=== PATIENT | male | born 1955 | race Caucasian/White ===

== ENCOUNTER 2017-12-24 15:41 | Emergency (ER) | payer OTHER ==
[~2017-12-24] VITALS: Ht 170.2 cm; Wt 66.0 kg
[~2017-12-24 15:41] MED LIST: ACET325S8 PO; CYCL1PAK PO; FLUN25I; HYDR50IN3 IM; OMEP20TA39 PO; QUET100 PO; SUCR1TAB PO; TRAZ100 PO
[2017-12-24 15:43] VITALS: BP 159/88; PULSE 92; RESP 16; TEMP 98.3; O2SAT 95
[2017-12-24 17:25] VITALS: BP 154/78; PULSE 77; RESP 20; TEMP 98.3; O2SAT 97
[2017-12-24 18:48] VITALS: BP 144/75; PULSE 81; RESP 16; TEMP 97.8; O2SAT 95
[2017-12-24] MEDS ORDERED: TRAZ100T10 PO (18:49)
[2017-12-24] MEDS ORDERED: HYDR50TA94 PO (18:49)
[2017-12-24] MEDS ORDERED: SERT-132 PO (18:49)
[2017-12-24] MEDS ORDERED: SERO200T PO (18:49)
[2017-12-24] MEDS ORDERED: LORazepam 2 MG/ML VIAL IV PUSH PRN ×3 (19:00)
[2017-12-24] MEDS ORDERED: LORazepam 2 MG TAB PO PRN (19:00)
[2017-12-24] MEDS ORDERED: FLUMAZENIL 0.5 MG/5 ML VIAL IV PUSH PRN (19:00)
[2017-12-24] MEDS: LORazepam 2 MG/ML VIAL IV PUSH PRN (19:10)
[2017-12-24 20:35] LABS: AUTOMATED NEUTROPHIL # 4.4 TH/MM3 (1.8-7.7); BASOPHIL # 0.1 TH/MM3 (0-0.2); BASOPHIL % 0.8 % (0.0-2.0); EOSINOPHIL # 0.2 TH/MM3 (0-0.4); EOSINOPHIL % 1.8 % (0.0-4.0); HEMATOCRIT 44.1 % (39.0-51.0); HEMOGLOBIN 15.4 GM/DL (13.0-17.0); LYMPH % 37.7 % (9.0-44.0); LYMPHOCYTE # 3.2 TH/MM3 (1.0-4.8); MEAN CELL VOLUME 85.2 FL (80.0-100.0); MEAN CORPUSCULAR HEMOGLOBIN 29.7 PG (27.0-34.0); MEAN CORPUSCULAR HGB CONC 34.8 % (32.0-36.0); MEAN PLATELET VOLUME 6.9 FL (7.0-11.0); MONO % 7.8 % (0.0-8.0); MONOCYTE # 0.7 TH/MM3 (0-0.9); NEUT % 51.9 % (16.0-70.0); PLATELET COUNT 228 TH/MM3 (150-450); RED BLOOD COUNT 5.18 MIL/MM3 (4.50-5.90); RED CELL DISTRIBUTION WIDTH 18.8 % (11.6-17.2); WHITE BLOOD COUNT 8.5 TH/MM3 (4.0-11.0)
[2017-12-24 21:02] LABS: ALBUMIN 3.8 GM/DL (3.4-5.0); ALKALINE PHOSPHATASE 126 U/L (45-117); ALT (GPT) 26 U/L (12-78); AST (GOT) 40 U/L (15-37); BICARBONATE 25.2 MEQ/L (21.0-32.0); BLOOD UREA NITROGEN 7 MG/DL (7-18); CALCIUM 8.7 MG/DL (8.5-10.1); CHLORIDE 101 MEQ/L (98-107); CREATININE 0.87 MG/DL (0.60-1.30); GLOMERULAR FILTRATION RATE 88 ML/MIN (>89); GLUCOSE,RANDOM 92 MG/DL (74-106); SODIUM (NA) 137 MEQ/L (136-145); TOTAL BILIRUBIN ADULT 0.1 MG/DL (0.2-1.0); TOTAL PROTEIN 7.6 GM/DL (6.4-8.2)
[2017-12-24 21:04] LABS: ACETAMINOPHEN LESS THAN 2.0 MCG/ML (10.0-30.0)
--- NOTE | 2017-12-24 21:25 | PD ---
HPI Chief Complaint: Injury Time Seen by Provider: 19:00 Travel History International Travel<30 days: No Contact w/Intl Traveler<30days: No Traveled to known affect area: No History of Present Illness HPI Patient is a 62-year-old male that presented voluntarily to the emergency department for psychiatric evaluation. Patient reports that he was suicidal on arrival. He states that he recently moved from [place] to [place] and is living with a sister who is "a bitch". He reported that he was "ready to lose it". He has a history of a previous suicide attempt, he states he attempted to cut his wrist. He denies any psychiatric history, he receives health care at the [facility]. He reports a history of hypertension hyperlipidemia, he reports being on medication for both but cannot state which ones. Patient states he has been anxious recently and feels better now that he has had Ativan. Patient reports a history of chronic alcoholism drinking 8-9 beers daily. He had for today prior to arrival. Symptom onset was gradual, symptom severity is moderate, symptoms are exacerbated by relationship issues with his sister. Patient denies any physical complaints at this time. PFSH Past Medical History Arthritis: Yes Bipolar Disorder: Yes Anxiety: Yes Depression: Yes High Cholesterol: Yes COPD: Yes Diminished Hearing: No GERD: Yes Hypertension: Yes Psychiatric: Yes Tetanus Vaccination: Unknown Past Surgical History Eye Surgery: Yes (LEFT EYE CATARACT SURGERY) Social History Alcohol Use: Yes ("I AM AN ALCOHOLIC") Tobacco Use: Yes (2 PPD) Substance Use: Yes (ALCOHOL DAILY 4-8 BEERS NOW. 1PINT VODKA DAILY BUT QUIT 1 MONTH AGO.) Allergies-Medications (Allergen,Severity, Reaction): Coded Allergies: No Known Allergies (Verified Allergy, Unknown, 12/24/17) Uncoded Allergies: environmental (Allergy, Intermediate, Irritation, 06/17/10) excess mucus Reported Meds & Prescriptions Reported Meds & Active Scripts Active Reported Trazodone (Trazodone HCl) 100 Mg Tablet 100 Mg PO HS Sertraline (Sertraline HCl) 50 Mg Tab 50 Mg PO DAILY Hydroxyzine HCl 50 Mg Tab 50 Mg PO TID Seroquel (Quetiapine Fumarate) 200 Mg Tab 200 Mg PO TID Review of Systems Except as stated in HPI: all other systems reviewed are Neg Psychiatric: Positive: Anxiety, Suicidal Ideations, Substance Abuse Physical Exam Narrative GENERAL: Well-developed, well-nourished, well-kept male. Presenting in no acute distress. SKIN: Warm and dry. HEAD: Atraumatic. Normocephalic. EYES: Pupils equal and round. No scleral icterus. No injection or drainage. ENT: No nasal bleeding or discharge. Mucous membranes pink and moist. NECK: Trachea midline. No JVD. CARDIOVASCULAR: Regular rate and rhythm. RESPIRATORY: No accessory muscle use. Clear to auscultation. Breath sounds equal bilaterally. GASTROINTESTINAL: Abdomen soft, non-tender, nondistended. Hepatic and splenic margins not palpable. MUSCULOSKELETAL: Extremities without clubbing, cyanosis, or edema. No obvious deformities. NEUROLOGICAL: Awake and alert. No obvious cranial nerve deficits. Motor grossly within normal limits. Five out of 5 muscle strength in the arms and legs. Normal speech. PSYCHIATRIC: Appropriate mood and affect; insight and judgment normal. Data Data Last Documented VS Vital Signs Date Time Temp Pulse Resp B/P (MAP) Pulse Ox O2 Delivery O2 Flow Rate FiO2 12/24/17 18:48 97.8 81 16 144/75 (98) 95 Room Air Orders Orders Diet Regular Basic (12/24/17 Dinner) Complete Blood Count With Diff (12/24/17 18:46) Comprehensive Metabolic Panel (12/24/17 18:46) Thyroid Stimulating Hormone (12/24/17 18:46) Psych Screen (12/24/17 18:46) Drug Screen, Random Urine (12/24/17 18:46) Alcohol (Ethanol) (12/24/17 18:46) Salicylates (Aspirin) (12/24/17 18:46) Tylenol (Acetaminophen) (12/24/17 18:46) Alcohol Withdrawal Asmt-Ciwa ONCE (12/24/17 18:46) Flumazenil Inj (Romazicon Inj) (12/24/17 19:00) Lorazepam (Ativan) (12/24/17 19:00) Lorazepam Inj (Ativan Inj) (12/24/17 19:00) Lorazepam (Ativan) (12/24/17 19:00) Lorazepam Inj (Ativan Inj) (12/24/17 19:00) Lorazepam Inj (Ativan Inj) (12/24/17 19:00) Lorazepam Inj (Ativan Inj) (12/24/17 19:00) Labs Laboratory Tests Test 12/24/17 20:10 12/24/17 20:17 White Blood Count 8.5 TH/MM3 Red Blood Count 5.18 MIL/MM3 Hemoglobin 15.4 GM/DL Hematocrit 44.1 % Mean Corpuscular Volume 85.2 FL Mean Corpuscular Hemoglobin 29.7 PG Mean Corpuscular Hemoglobin Concent 34.8 % Red Cell Distribution Width 18.8 % Platelet Count 228 TH/MM3 Mean Platelet Volume 6.9 FL Neutrophils (%) (Auto) 51.9 % Lymphocytes (%) (Auto) 37.7 % Monocytes (%) (Auto) 7.8 % Eosinophils (%) (Auto) 1.8 % Basophils (%) (Auto) 0.8 % Neutrophils # (Auto) 4.4 TH/MM3 Lymphocytes # (Auto) 3.2 TH/MM3 Monocytes # (Auto) 0.7 TH/MM3 Eosinophils # (Auto) 0.2 TH/MM3 Basophils # (Auto) 0.1 TH/MM3 CBC Comment DIFF FINAL Differential Comment Blood Urea Nitrogen 7 MG/DL Creatinine 0.87 MG/DL Random Glucose 92 MG/DL Total Protein 7.6 GM/DL Albumin 3.8 GM/DL Calcium Level 8.7 MG/DL Alkaline Phosphatase 126 U/L Aspartate Amino Transf (AST/SGOT) 40 U/L Alanine Aminotransferase (ALT/SGPT) 26 U/L Total Bilirubin 0.1 MG/DL Sodium Level 137 MEQ/L Potassium Level 3.7 MEQ/L Chloride Level 101 MEQ/L Carbon Dioxide Level 25.2 MEQ/L Anion Gap 11 MEQ/L Estimat Glomerular Filtration Rate 88 ML/MIN Thyroid Stimulating Hormone 3rd Gen 3.200 uIU/ML Salicylates Level 4.7 MG/DL Acetaminophen Level LESS THAN 2.0 MCG/ML Ethyl Alcohol Level 210 MG/DL Urine Opiates Screen NEG Urine Barbiturates Screen NEG Urine Amphetamines Screen NEG Urine Benzodiazepines Screen NEG Urine Cocaine Screen NEG Urine Cannabinoids Screen NEG MDM Medical Decision Making Medical Screen Exam Complete: Yes Emergency Medical Condition: Yes Interpretation(s) Laboratory Tests Test 12/24/17 20:10 12/24/17 20:17 White Blood Count 8.5 TH/MM3 Red Blood Count 5.18 MIL/MM3 Hemoglobin 15.4 GM/DL Hematocrit 44.1 % Mean Corpuscular Volume 85.2 FL Mean Corpuscular Hemoglobin 29.7 PG Mean Corpuscular Hemoglobin Concent 34.8 % Red Cell Distribution Width 18.8 % Platelet Count 228 TH/MM3 Mean Platelet Volume 6.9 FL Neutrophils (%) (Auto) 51.9 % Lymphocytes (%) (Auto) 37.7 % Monocytes (%) (Auto) 7.8 % Eosinophils (%) (Auto) 1.8 % Basophils (%) (Auto) 0.8 % Neutrophils # (Auto) 4.4 TH/MM3 Lymphocytes # (Auto) 3.2 TH/MM3 Monocytes # (Auto) 0.7 TH/MM3 Eosinophils # (Auto) 0.2 TH/MM3 Basophils # (Auto) 0.1 TH/MM3 CBC Comment DIFF FINAL Differential Comment Blood Urea Nitrogen 7 MG/DL Creatinine 0.87 MG/DL Random Glucose 92 MG/DL Total Protein 7.6 GM/DL Albumin 3.8 GM/DL Calcium Level 8.7 MG/DL Alkaline Phosphatase 126 U/L Aspartate Amino Transf (AST/SGOT) 40 U/L Alanine Aminotransferase (ALT/SGPT) 26 U/L Total Bilirubin 0.1 MG/DL Sodium Level 137 MEQ/L Potassium Level 3.7 MEQ/L Chloride Level 101 MEQ/L Carbon Dioxide Level 25.2 MEQ/L Anion Gap 11 MEQ/L Estimat Glomerular Filtration Rate 88 ML/MIN Thyroid Stimulating Hormone 3rd Gen 3.200 uIU/ML Salicylates Level 4.7 MG/DL Acetaminophen Level LESS THAN 2.0 MCG/ML Ethyl Alcohol Level 210 MG/DL Urine Opiates Screen NEG Urine Barbiturates Screen NEG Urine Amphetamines Screen NEG Urine Benzodiazepines Screen NEG Urine Cocaine Screen NEG Urine Cannabinoids Screen NEG Vital Signs Date Time Temp Pulse Resp B/P (MAP) Pulse Ox O2 Delivery O2 Flow Rate FiO2 12/24/17 18:48 97.8 81 16 144/75 (98) 95 Room Air 12/24/17 17:25 98.3 77 20 154/78 (103) 97 Room Air 12/24/17 16:20 Room Air 12/24/17 15:43 98.3 92 16 159/88 (111) 95 Room Air Differential Diagnosis Anxiety versus depression versus substance abuse versus metabolic abnormality versus suicidal ideations versus other Narrative Course Patient is a 62-year-old well-appearing male presented voluntarily for psychiatric evaluation. Patient's vital signs are stable. Mental health screening discussed with the patient. Psychiatric screen ordered. Labs reviewed , no acute finding identified. Patient's blood alcohol level is 210. Patient is medically clear for psychiatric evaluation. Diagnosis Primary Impression: Medical clearance for psychiatric admission Condition: Stable Karin Aponte Dec 24, 2017 21:25
[2017-12-24 22:51] VITALS: BP 108/64; PULSE 77; RESP 18; TEMP 98.9; O2SAT 95
[2017-12-25] MEDS: LORazepam 2 MG/ML VIAL IV PUSH PRN (00:06)
[2017-12-25 03:09] VITALS: BP 144/75; PULSE 78; RESP 18; TEMP 98.8; O2SAT 95
[2017-12-25] MEDS: LORazepam 1 MG TAB PO PRN ×3 (05:23→11:51)
[2017-12-25 06:54] VITALS: BP 146/76; PULSE 85; RESP 18; TEMP 98.1; O2SAT 96
--- NOTE | 2017-12-25 09:03 | PD ---
Physical Exam Time Seen by Provider: 09:02 Narrative The patient is being transferred to the [facility] for continued care and evaluation. Data Data Last Documented VS Vital Signs Date Time Temp Pulse Resp B/P (MAP) Pulse Ox O2 Delivery O2 Flow Rate FiO2 12/25/17 06:54 98.1 85 18 146/76 (99) 96 Room Air Orders Orders Diet Regular Basic (12/24/17 Dinner) Complete Blood Count With Diff (12/24/17 18:46) Comprehensive Metabolic Panel (12/24/17 18:46) Thyroid Stimulating Hormone (12/24/17 18:46) Psych Screen (12/24/17 18:46) Drug Screen, Random Urine (12/24/17 18:46) Alcohol (Ethanol) (12/24/17 18:46) Salicylates (Aspirin) (12/24/17 18:46) Tylenol (Acetaminophen) (12/24/17 18:46) Alcohol Withdrawal Asmt-Ciwa ONCE (12/24/17 18:46) Flumazenil Inj (Romazicon Inj) (12/24/17 19:00) Lorazepam (Ativan) (12/24/17 19:00) Lorazepam Inj (Ativan Inj) (12/24/17 19:00) Lorazepam (Ativan) (12/24/17 19:00) Lorazepam Inj (Ativan Inj) (12/24/17 19:00) Lorazepam Inj (Ativan Inj) (12/24/17 19:00) Lorazepam Inj (Ativan Inj) (12/24/17 19:00) Diet Regular Basic (12/25/17 Breakfast) Labs Laboratory Tests Test 12/24/17 20:10 12/24/17 20:17 White Blood Count 8.5 TH/MM3 Red Blood Count 5.18 MIL/MM3 Hemoglobin 15.4 GM/DL Hematocrit 44.1 % Mean Corpuscular Volume 85.2 FL Mean Corpuscular Hemoglobin 29.7 PG Mean Corpuscular Hemoglobin Concent 34.8 % Red Cell Distribution Width 18.8 % Platelet Count 228 TH/MM3 Mean Platelet Volume 6.9 FL Neutrophils (%) (Auto) 51.9 % Lymphocytes (%) (Auto) 37.7 % Monocytes (%) (Auto) 7.8 % Eosinophils (%) (Auto) 1.8 % Basophils (%) (Auto) 0.8 % Neutrophils # (Auto) 4.4 TH/MM3 Lymphocytes # (Auto) 3.2 TH/MM3 Monocytes # (Auto) 0.7 TH/MM3 Eosinophils # (Auto) 0.2 TH/MM3 Basophils # (Auto) 0.1 TH/MM3 CBC Comment DIFF FINAL Differential Comment Blood Urea Nitrogen 7 MG/DL Creatinine 0.87 MG/DL Random Glucose 92 MG/DL Total Protein 7.6 GM/DL Albumin 3.8 GM/DL Calcium Level 8.7 MG/DL Alkaline Phosphatase 126 U/L Aspartate Amino Transf (AST/SGOT) 40 U/L Alanine Aminotransferase (ALT/SGPT) 26 U/L Total Bilirubin 0.1 MG/DL Sodium Level 137 MEQ/L Potassium Level 3.7 MEQ/L Chloride Level 101 MEQ/L Carbon Dioxide Level 25.2 MEQ/L Anion Gap 11 MEQ/L Estimat Glomerular Filtration Rate 88 ML/MIN Thyroid Stimulating Hormone 3rd Gen 3.200 uIU/ML Salicylates Level 4.7 MG/DL Acetaminophen Level LESS THAN 2.0 MCG/ML Ethyl Alcohol Level 210 MG/DL Urine Opiates Screen NEG Urine Barbiturates Screen NEG Urine Amphetamines Screen NEG Urine Benzodiazepines Screen NEG Urine Cocaine Screen NEG Urine Cannabinoids Screen NEG MDM Supervised Visit with CATIE: No Narrative Course The patient is being transferred to the [facility] for continued care and evaluation. Diagnosis Primary Impression: Medical clearance for psychiatric admission Disposition: 65 DISC TO PSYCH CARE FACILITY Condition: Stable Cindy Roche Dec 25, 2017 09:03
[2017-12-25 11:28] VITALS: BP 130/98; PULSE 97; RESP 18; O2SAT 97
== END 2017-12-25 13:07 ==
LOC: NEPJ 15:41
DX: F10.229 Alcohol dependence with intoxication, unspecified (principal); F41.9 Anxiety disorder, unspecified; F31.9 Bipolar disorder, unspecified; I10 Essential (primary) hypertension; E78.00 Pure hypercholesterolemia, unspecified; J44.9 Chronic obstructive pulmonary disease, unspecified; F17.210 Nicotine dependence, cigarettes, uncomplicated; Y90.7 Blood alcohol level of 200-239 mg/100 ml; Z79.899 Other long term (current) drug therapy
CPT/HCPCS: 80053; 80307; 84443; 85025; 96374; 96376; 99285; J2060

== ENCOUNTER 2018-01-12 12:14 | Inpatient (IN) | payer OTHER ==
[2018-01-12] VITALS (7 sets, daily range): BP systolic 114–161; BP diastolic 69–91; PULSE 84–89; RESP 16–24; TEMP 98.2–98.5; O2SAT 94–100
[~2018-01-12] VITALS: Ht 170.2 cm; Wt 75.0 kg
[~2018-01-12 12:14] MED LIST changes: -ACET325S8 PO; -CYCL1PAK PO; -FLUN25I; -HYDR50IN3 IM; +HYDR50TA94 PO; -OMEP20TA39 PO; -QUET100 PO; +SERO200T PO; +SERT-132 PO; -SUCR1TAB PO; -TRAZ100 PO; +TRAZ100T10 PO
--- NOTE | 2018-01-12 12:26 | PD ---
HPI Chief Complaint: Respiratory Symptoms Time Seen by Provider: 12:23 Travel History International Travel<30 days: No Contact w/Intl Traveler<30days: No Traveled to known affect area: No History of Present Illness HPI 62yo M with PMH of anxiety, COPD, depression, alcohol abuse presents to the ED with c/o sob for 2-3 days. Pt said the albuterol treatment that EVAC gave did help. Pt also with multiple other complaints including abdominal pain for a few weeks, increased urinary frequency. +Cough. Denies any fever, chest pain, n/v, focal weakness. Pt was last here 12/24/17 for voluntary psych evaluation. PFSH Past Medical History Arthritis: Yes Bipolar Disorder: Yes Anxiety: Yes Depression: Yes High Cholesterol: Yes COPD: Yes Diminished Hearing: No GERD: Yes Hypertension: Yes Psychiatric: Yes Tetanus Vaccination: > 5 Years Influenza Vaccination: No Past Surgical History Eye Surgery: Yes (LEFT EYE CATARACT SURGERY) Social History Alcohol Use: Yes ("I AM AN ALCOHOLIC") Tobacco Use: Yes (2 PPD) Substance Use: No Allergies-Medications (Allergen,Severity, Reaction): Coded Allergies: No Known Drug Allergies (Verified Allergy, Unknown, 01/13/18) Uncoded Allergies: environmental (Allergy, Intermediate, Irritation, 06/17/10) excess mucus Reported Meds & Prescriptions Reported Meds & Active Scripts Active Reported Trazodone (Trazodone HCl) 100 Mg Tablet 100 Mg PO HS Sertraline (Sertraline HCl) 50 Mg Tab 50 Mg PO DAILY Hydroxyzine HCl 50 Mg Tab 50 Mg PO TID Seroquel (Quetiapine Fumarate) 200 Mg Tab 200 Mg PO TID Review of Systems Except as stated in HPI: all other systems reviewed are Neg Physical Exam Narrative GENERAL: 62yo M in mild distress. SKIN: Focused skin assessment warm/dry. HEAD: Atraumatic. Normocephalic. EYES: Pupils equal and round. No scleral icterus. No injection or drainage. ENT: No nasal bleeding or discharge. Mucous membranes pink and moist. NECK: Trachea midline. No JVD. CARDIOVASCULAR: Regular rate and rhythm. No murmur appreciated. RESPIRATORY: End expiratory wheezing bilaterally. GASTROINTESTINAL: Abdomen soft,+TTP LLQ. +TTP suprapubic region. No rebound tenderness or guarding. MUSCULOSKELETAL: No obvious deformities. No clubbing. No cyanosis. No edema. NEUROLOGICAL: Awake and alert. No obvious cranial nerve deficits. Motor grossly within normal limits in all extremities. Sensation equal. Normal speech. Data Data Last Documented VS Vital Signs Date Time Temp Pulse Resp B/P (MAP) Pulse Ox O2 Delivery O2 Flow Rate FiO2 01/12/18 17:03 84 19 141/86 (104) 97 Room Air 01/12/18 12:50 21 01/12/18 12:23 3.00 01/12/18 12:21 98.5 Orders Orders Complete Blood Count With Diff (01/12/18 12:25) Basic Metabolic Panel (Bmp) (01/12/18 12:25) Act Partial Throm Time (Ptt) (01/12/18 12:25) Prothrombin Time / Inr (Pt) (01/12/18 12:25) Magnesium (Mg) (01/12/18 12:25) Troponin I (01/12/18 12:25) Urinalysis - C+S If Indicated (01/12/18 12:25) Electrocardiogram (01/12/18 12:25) Chest, Single Ap (01/12/18 12:25) Methylprednisolone So Succ Inj (Solumedr (01/12/18 12:30) Albuterol-Ipratropium Neb (Duoneb Neb) (01/12/18 12:30) Ct Abd/Pel W Iv Contrast(Rout) (01/12/18 ) Alcohol (Ethanol) (01/12/18 12:26) Iohexol 350 Inj (Omnipaque 350 Inj) (01/12/18 14:33) Lipase (01/12/18 12:35) Albuterol-Ipratropium Neb (Duoneb Neb) (01/12/18 15:45) Ct Brain W/O Iv Contrast(Rout) (01/12/18 ) Lorazepam (Ativan) (01/12/18 17:30) Consult Neurology (01/12/18 ) Admit Order (Ed Use Only) (01/12/18 18:25) Labs Laboratory Tests Test 01/12/18 12:35 White Blood Count 10.6 TH/MM3 Red Blood Count 5.06 MIL/MM3 Hemoglobin 14.7 GM/DL Hematocrit 43.3 % Mean Corpuscular Volume 85.6 FL Mean Corpuscular Hemoglobin 29.1 PG Mean Corpuscular Hemoglobin Concent 34.0 % Red Cell Distribution Width 17.8 % Platelet Count 298 TH/MM3 Mean Platelet Volume 6.9 FL Neutrophils (%) (Auto) 64.3 % Lymphocytes (%) (Auto) 23.1 % Monocytes (%) (Auto) 7.4 % Eosinophils (%) (Auto) 4.0 % Basophils (%) (Auto) 1.2 % Neutrophils # (Auto) 6.8 TH/MM3 Lymphocytes # (Auto) 2.5 TH/MM3 Monocytes # (Auto) 0.8 TH/MM3 Eosinophils # (Auto) 0.4 TH/MM3 Basophils # (Auto) 0.1 TH/MM3 CBC Comment DIFF FINAL Differential Comment Prothrombin Time 10.5 SEC Prothromb Time International Ratio 1.0 RATIO Activated Partial Thromboplast Time 27.2 SEC Urine Color LIGHT-YELLOW Urine Turbidity CLEAR Urine pH 6.5 Urine Specific [place] 1.002 Urine Protein NEG mg/dL Urine Glucose (UA) NEG mg/dL Urine Ketones NEG mg/dL Urine Occult Blood NEG Urine Nitrite NEG Urine Bilirubin NEG Urine Urobilinogen LESS THAN 2.0 MG/DL Urine Leukocyte Esterase NEG Urine WBC 1 /hpf Urine Squamous Epithelial Cells <1 /hpf Microscopic Urinalysis Comment CULT NOT INDICATED Blood Urea Nitrogen 7 MG/DL Creatinine 0.98 MG/DL Random Glucose 106 MG/DL Calcium Level 9.5 MG/DL Magnesium Level 1.9 MG/DL Sodium Level 134 MEQ/L Potassium Level 3.7 MEQ/L Chloride Level 100 MEQ/L Carbon Dioxide Level 25.5 MEQ/L Anion Gap 9 MEQ/L Estimat Glomerular Filtration Rate 77 ML/MIN Hemoglobin A1c 5.5 % Troponin I LESS THAN 0.02 NG/ML Lipase 116 U/L Ethyl Alcohol Level LESS THAN 3 MG/DL [facility] Medical Decision Making Medical Screen Exam Complete: Yes Emergency Medical Condition: Yes Interpretation(s) EKG: NSR 88bpm. Normal axis. ST depression diffusely. Similar ST depressions in prior EKG. Differential Diagnosis COPD exacerbation vs. chronic abdominal pain vs. UTI vs. pneumonia Narrative Course 62yo M with sob today. Pt is wheezing bilaterally and has history of COPD. Pt also with abdominal pain for a while. Labs reviewed, no leukocytosis. H/H normal. Lipase normal. Troponin negative. Alcohol negative. UA negative. CXR showed chronic elevation of right hemidiaphragm with minimal right basilar atelectasis/scarring. Minimal linear left basilar airspace disease, presumably atelectasis/scarring. CT a/p showed subsegmental right basilar air space disease, probably atelectasis or mild inflammatory change. 3.7cm infrarenal abdominal aortic aneurysm. No evidence for rupture. Small ventral hernias without evidence of incarceration or obstruction. Colonic diverticulosis. Pt given duonebs x3 and methylprednisolone and feels a little better. Still wheezing and wants another treatment so it was given. Pt reevaluated at bedside and now said that he has numbness in left side of his body including his face, arm and leg. It is very subjective. Muscle strength 5 /5 in all extremities. He said that he had this when he came in but he did not mention this at all. I am suspecting malingering but will obtain CT brain. CT brain negative. Although I have low suspicion for TIA, feel that I cannot rule it out in the ED. Discussed with Dr. Lin and he recommended neurology consult which I placed. Pt was given ativan 1mg PO for anxiety/alcohol withdrawal precautions since he complained of tremors and feeling anxious. Diagnosis Primary Impression: COPD exacerbation Additional Impression: TIA (transient ischemic attack) Qualified Codes: G45.9 - Transient cerebral ischemic attack, unspecified Admitting Information Admitting Physician Requests: Courtney Begum DO Jan 12, 2018 12:26
[2018-01-12] MEDS ORDERED: methylPREDNISolone SOD SUCC 125 MG/2 ML VIAL IV PUSH ONE (12:30)
[2018-01-12 12:49] LABS: AUTOMATED NEUTROPHIL # 6.8 TH/MM3 (1.8-7.7); BASOPHIL # 0.1 TH/MM3 (0-0.2); BASOPHIL % 1.2 % (0.0-2.0); EOSINOPHIL # 0.4 TH/MM3 (0-0.4); HEMATOCRIT 43.3 % (39.0-51.0); HEMOGLOBIN 14.7 GM/DL (13.0-17.0); LYMPH % 23.1 % (9.0-44.0); LYMPHOCYTE # 2.5 TH/MM3 (1.0-4.8); MEAN CELL VOLUME 85.6 FL (80.0-100.0); MEAN CORPUSCULAR HEMOGLOBIN 29.1 PG (27.0-34.0); MEAN PLATELET VOLUME 6.9 FL (7.0-11.0); MONO % 7.4 % (0.0-8.0); MONOCYTE # 0.8 TH/MM3 (0-0.9); NEUT % 64.3 % (16.0-70.0); PLATELET COUNT 298 TH/MM3 (150-450); RED BLOOD COUNT 5.06 MIL/MM3 (4.50-5.90); RED CELL DISTRIBUTION WIDTH 17.8 % (11.6-17.2); WHITE BLOOD COUNT 10.6 TH/MM3 (4.0-11.0)
[2018-01-12] MEDS: RESP: ALBUTEROL 2.5 MG/IPRATROPIUM 0.5 MG NEB (SCH) INH ×2 (12:52→12:53)
[2018-01-12 12:53] LABS: BILIRUBIN, URINE NEG (NEG); BLOOD, URINE NEG (NEG); GLUCOSE,URINE NEG (NEG); KETONE, URINE NEG (NEG); NITRITE,URINE NEG (NEG); PH, URINE 6.5 (5.0-8.5); SQUAMOUS EPITHELIAL CELL URINE <1 /hpf (0-5); URINE COLOR LIGHT-YELLOW (YELLW/STRAW); URINE LEUKOCYTE ESTERASE NEG (NEG)
--- NOTE | 2018-01-12 12:54 | RADRPT ---
EXAM DATE/TIME: 01/12/2018 12:41 [facility] COMPARISON: CHEST SINGLE AP, January 02, 2012, 21:58. INDICATIONS : Persistent cough and shortness of breath for two weeks. MEDICAL HISTORY : Chronic obstructive pulmonary disease. SURGICAL HISTORY : None. ENCOUNTER: Initial ACUITY: 2 weeks PAIN SCORE: 0/10 LOCATION: Bilateral chest FINDINGS: Chronic elevation of the right hemidiaphragm with minimal right basilar airspace disease. There is al so minimal left basilar airspace disease. Cardiomediastinal contours are within normal limits. Bony t horax is intact. CONCLUSION: 1. Chronic elevation of the right hemidiaphragm with minimal right basilar atelectasis/scarring. 2. Minimal linear left basilar airspace disease, presumably atelectasis/scarring. Anival Ramsey MD on January 12, 2018 at 12:51 Board Certified Radiologist. This report was verified electronically.
[2018-01-12 12:59] LABS: PROTHROMBIN TIME - PATIENT 10.5 SEC (9.8-11.6)
[2018-01-12 13:12] LABS: TROPONIN I LESS THAN 0.02 NG/ML (0.02-0.05)
[2018-01-12 13:26] LABS: BICARBONATE 25.5 MEQ/L (21.0-32.0); BLOOD UREA NITROGEN 7 MG/DL (7-18); CALCIUM 9.5 MG/DL (8.5-10.1); CHLORIDE 100 MEQ/L (98-107); CREATININE 0.98 MG/DL (0.60-1.30); GLOMERULAR FILTRATION RATE 77 ML/MIN (>89); GLUCOSE,RANDOM 106 MG/DL (74-106); MAGNESIUM 1.9 MG/DL (1.5-2.5); SODIUM (NA) 134 MEQ/L (136-145)
[2018-01-12] MEDS ORDERED: IOHEXOL 350 MG/ML 10 ML VIAL (for RAD DIAG) IVCONTRAST ONE (14:33)
--- NOTE | 2018-01-12 15:00 | RADRPT ---
EXAM DATE/TIME: 01/12/2018 14:25 [facility] COMPARISON: No previous studies available for comparison. INDICATIONS : Abdominal pain, frequent urination. IV CONTRAST: 85 cc Omnipaque 350 (iohexol) IV ORAL CONTRAST: No oral contrast ingested. RADIATION DOSE: 7.04 CTDIvol (mGy) MEDICAL HISTORY : Hypertension. Chronic obstructive pulmonary disease. Gastroesophageal reflux disease. SURGICAL HISTORY : None. ENCOUNTER: Initial ACUITY: 1 day PAIN SCALE: 9/10 LOCATION: Bilateral upper quadrant TECHNIQUE: Volumetric scanning of the abdomen and pelvis was performed. Using automated exposure control and ad justment of the mA and/or kV according to patient size, radiation dose was kept as low as reasonably achievable to obtain optimal diagnostic quality images. DICOM format image data is available electro nically for review and comparison. FINDINGS: There is subsegmental airspace disease at the right lung base, probably atelectasis mild inflammatory change. Left lung base is clear. As elevation of the right hemidiaphragm. Moderate coronary calcifications. No acute findings in the liver, spleen, adrenals, kidneys pancreas. No calcified gallstones. There is a 3.7 cm infrarenal abdominal aortic aneurysm. 2 small ventral hernias containing fat about 2.3 cm in diameter above the umbilicus and at the umbilicus measuring about 2.6 cm in diameter and co ntaining a small loop of bowel. There is colonic diverticulosis without evidence for diverticulitis. No acute bony abnormalities. CONCLUSION: 1. Subsegmental right basilar air space disease, probably atelectasis or mild inflammatory change wit h elevated right hemidiaphragm. 2. 3.7 cm infrarenal abdominal aortic aneurysm. No evidence for rupture. 3. Mild fatty liver. Small ventral hernias without evidence for incarceration or obstruction. 4. Colonic diverticulosis without diverticulitis. Carlos Macdonald MD on January 12, 2018 at 14:51 Board Certified Radiologist. This report was verified electronically.
[2018-01-12] MEDS ORDERED: RESP: ALBUTEROL 2.5 MG/IPRATROPIUM 0.5 MG NEB (SCH) NEB ONE (15:45)
[2018-01-12] MEDS ORDERED: LORazepam 1 MG TAB PO ONE (17:30)
--- NOTE | 2018-01-12 17:50 | RADRPT ---
EXAM DATE/TIME: 01/12/2018 17:30 [facility] COMPARISON: No previous studies available for comparison. INDICATIONS : Numbness left side of body. RADIATION DOSE: 38.11 CTDIvol (mGy) MEDICAL HISTORY : Hypertension. Chronic obstructive pulmonary disease. SURGICAL HISTORY : None. ENCOUNTER: Initial ACUITY: 2 weeks PAIN SCALE: 0/10 LOCATION: cranial TECHNIQUE: Multiple contiguous axial images were obtained of the head. Using automated exposure control and adj ustment of the mA and/or kV according to patient size, radiation dose was kept as low as reasonably a chievable to obtain optimal diagnostic quality images. DICOM format image data is available electro nically for review and comparison. FINDINGS: CEREBRUM: The ventricles are normal for age. No evidence of midline shift, mass lesion, hemorrhage or acute in farction. No extra-axial fluid collections are seen. POSTERIOR FOSSA: The cerebellum and brainstem are intact. The 4th ventricle is midline. The cerebellopontine angle i s unremarkable. EXTRACRANIAL: The visualized portion of the orbits is intact. SKULL: The calvaria is intact. No evidence of skull fracture. CONCLUSION: 1. No acute intracranial abnormalities. Mucosal thickening ethmoid air cells. Carlos Macdonald MD on January 12, 2018 at 17:46 Board Certified Radiologist. This report was verified electronically.
[2018-01-12] MEDS ORDERED: GLUCAGON 1 MG/ML VIAL OTHER PRN (18:45)
[2018-01-12] MEDS ORDERED: ACETAMINOPHEN 325 MG TAB PO PRN ×2 (18:45)
[2018-01-12] MEDS ORDERED: DEXTROSE 50% IN WATER 50 ML VIAL(D50) IV PUSH PRN (18:45)
[2018-01-12] MEDS ORDERED: NALOXONE HCL 0.4 MG/ML AMP IV PUSH PRN (18:45)
[2018-01-12] MEDS ORDERED: MAGNESIUM HYDROXIDE SUSP 30 ML CUP PO PRN (18:45)
[2018-01-12] MEDS ORDERED: SODIUM CHLORIDE 0.9% FLUSH 10 ML FLUSH IV FLUSH PRN (18:45)
[2018-01-12] MEDS ORDERED: ONDANSETRON HCL 4 MG/2 ML VIAL IVP PRN (18:45)
[2018-01-12 19:04] LABS: HEMOGLOBIN A1C 5.5 % (4.3-6.0)
[2018-01-12] MEDS ORDERED: FLUMAZENIL 0.5 MG/5 ML VIAL IV PUSH PRN (21:00)
[2018-01-12] MEDS ORDERED: LORazepam 2 MG/ML VIAL IV PUSH PRN ×2 (21:00)
[2018-01-12] MEDS ORDERED: LORazepam 2 MG TAB PO PRN (21:00)
[2018-01-12] MEDS ORDERED: TEMAZEPAM 15 MG CAP PO PRN (21:00)
[2018-01-12] MEDS ORDERED: LORazepam 1 MG TAB PO PRN (21:00)
--- NOTE | 2018-01-12 21:07 | HHI.HP ---
HPI Service [facility] Primary Care Physician Unknown Admission Diagnosis COPD exacerbation, TIA Diagnoses: Travel History International Travel<30 Days: No Contact w/Intl Traveler <30 Da: No Traveled to Known Affected Are: No History of Present Illness 62-year-old male with a past medical history significant for anxiety/depression , COPD, hypertension and hyperlipidemia presents to the emergency department for the evaluation of "bladder pain." Patient states that his bladder has been bothering him for months. He feels as though he has to urinate all the time. He was previously worked up for this and given multiple medications which he reports he takes at times. The patient states he was taking his medications that he started to feel better and he stopped taking them. He has not followed up as an outpatient with anyone because he just moved here and has not established with the [place] system yet. He denies any pain with urination or blood in his urine. The patient states that while he was in the emergency department he began to develop a numbness on the dorsum of both hands and in his left lower extremity and foot. He states this started around 11 AM. Review of Systems Except as stated in HPI: all other systems reviewed are Neg Denies fever or chills Denies blurry vision, otorrhea, rhinorrhea Denies sore throat and cough No chest pain, palpitations No shortness of breath or wheezing No abdominal pain Denies constipation/diarrhea/nausea/vomiting Denies muscle pain Denies focal weakness No rashes Past Family Social History Past Medical History Anxiety/depression COPD Hypertension Hyperlipidemia Past Surgical History None Reported Medications Reported Meds & Active Scripts Active Reported Trazodone (Trazodone HCl) 100 Mg Tablet 100 Mg PO HS Sertraline (Sertraline HCl) 50 Mg Tab 50 Mg PO DAILY Hydroxyzine HCl 50 Mg Tab 50 Mg PO TID Seroquel (Quetiapine Fumarate) 200 Mg Tab 200 Mg PO TID Allergies: Uncoded Allergies: environmental (Allergy, Intermediate, Irritation, 06/17/10) excess mucus Family History Negative for CAD/DM Social History Smokes approximately one pack of cigarettes per day. Drinks approximately 4-5 beers daily. Denies illicit drugs. Physical Exam Vital Signs Vital Signs Date Time Temp Pulse Resp B/P (MAP) Pulse Ox O2 Delivery O2 Flow Rate FiO2 01/12/18 19:05 89 16 134/75 (94) 96 Room Air 01/12/18 17:03 84 19 141/86 (104) 97 Room Air 01/12/18 14:43 88 18 136/87 (103) 97 01/12/18 12:50 97 21 01/12/18 12:23 Nasal Cannula 3.00 01/12/18 12:21 98.5 87 24 161/91 (114) 100 Physical Exam GENERAL: male lying in bed, tremulous SKIN: No rashes, ecchymoses or lesions. Cool and dry. HEAD: Atraumatic. Normocephalic. No temporal or scalp tenderness. EYES: Pupils equal round and reactive. Extraocular motions intact. No scleral icterus. No injection or drainage. ENT: Nose without bleeding, purulent drainage or septal hematoma. Throat without erythema, tonsillar hypertrophy or exudate. Uvula midline. Airway patent. NECK: Trachea midline. No JVD or lymphadenopathy. Supple, nontender, no meningeal signs. CARDIOVASCULAR: Regular rate and rhythm without murmurs, gallops, or rubs. RESPIRATORY: Clear to auscultation. Breath sounds equal bilaterally. No wheezes , rales, or rhonchi. GASTROINTESTINAL: Abdomen soft, non-tender, nondistended. No hepato-splenomegaly , or palpable masses. No guarding. MUSCULOSKELETAL: Extremities without clubbing, cyanosis, or edema. No joint tenderness, effusion, or edema noted. No calf tenderness. NEUROLOGICAL: Awake and alert. Cranial nerves II through XII intact. Motor and sensory grossly within normal limits. Normal speech. Spontaneously moves all 4 extremities. Difficult to assess strength as patient with severe tremors and questionable participation in exam. Laboratory Laboratory Tests Test 01/12/18 12:35 White Blood Count 10.6 Red Blood Count 5.06 Hemoglobin 14.7 Hematocrit 43.3 Mean Corpuscular Volume 85.6 Mean Corpuscular Hemoglobin 29.1 Mean Corpuscular Hemoglobin Concent 34.0 Red Cell Distribution Width 17.8 Platelet Count 298 Mean Platelet Volume 6.9 Neutrophils (%) (Auto) 64.3 Lymphocytes (%) (Auto) 23.1 Monocytes (%) (Auto) 7.4 Eosinophils (%) (Auto) 4.0 Basophils (%) (Auto) 1.2 Neutrophils # (Auto) 6.8 Lymphocytes # (Auto) 2.5 Monocytes # (Auto) 0.8 Eosinophils # (Auto) 0.4 Basophils # (Auto) 0.1 CBC Comment DIFF FINAL Differential Comment Prothrombin Time 10.5 Prothromb Time International Ratio 1.0 Activated Partial Thromboplast Time 27.2 Urine Color LIGHT-YELLOW Urine Turbidity CLEAR Urine pH 6.5 Urine Specific [place] 1.002 Urine Protein NEG Urine Glucose (UA) NEG Urine Ketones NEG Urine Occult Blood NEG Urine Nitrite NEG Urine Bilirubin NEG Urine Urobilinogen LESS THAN 2.0 Urine Leukocyte Esterase NEG Urine WBC 1 Urine Squamous Epithelial Cells <1 Microscopic Urinalysis Comment CULT NOT INDICATED Blood Urea Nitrogen 7 Creatinine 0.98 Random Glucose 106 Calcium Level 9.5 Magnesium Level 1.9 Sodium Level 134 Potassium Level 3.7 Chloride Level 100 Carbon Dioxide Level 25.5 Anion Gap 9 Estimat Glomerular Filtration Rate 77 Troponin I LESS THAN 0.02 Lipase 116 Ethyl Alcohol Level LESS THAN 3 Result Diagram: 01/12/18 1235 01/12/18 1235 Caprini VTE Risk Assessment Caprini VTE Risk Assessment: Mod/High Risk (score >= 2) Caprini Risk Assessment Model Point Value = 1 Point Value = 2 Point Value = 3 Point Value = 5 Age 41-60 Minor surgery BMI > 25 kg/m2 Swollen legs Varicose veins or History of unexplained or recurrent spontaneous Oral contraceptives or hormone replacement Sepsis (< 1 month) Serious lung disease, including pneumonia (< 1 month) Abnormal pulmonary function Acute myocardial infarction Congestive heart failure (< 1 month) History of inflammatory bowel disease Medical patient at bed rest Age 61-74 Arthroscopic surgery Major open surgery (> 45 min) Laparoscopic surgery (> 45 min) Malignancy Confined to bed (> 72 hours) Immobilizing plaster cast Central venous access Age >= 75 History of VTE Family history of VTE Factor V Leiden Prothrombin [id number] Lupus anticoagulant Anticardiolipin antibodies Elevated serum homocysteine Heparin-induced thrombocytopenia Other congenital or acquired thrombophilia Stroke (< 1 month) Elective arthroplasty Hip, pelvis, or leg fracture Acute spinal cord injury (< 1 month) Prophylaxis Regimen Total Risk Factor Score Risk Level Prophylaxis Regimen 0-1 Low Early ambulation 2 Moderate Order ONE of the following: *Sequential Compression Device (SCD) *Heparin 5000 units SQ BID 3-4 Higher Order ONE of the following medications: *Heparin 5000 units SQ TID *Enoxaparin/Lovenox 40 mg SQ daily (WT < 150 kg, CrCl > 30 mL/min) *Enoxaparin/Lovenox 30 mg SQ daily (WT < 150 kg, CrCl > 10-29 mL/min) *Enoxaparin/Lovenox 30 mg SQ BID (WT < 150 kg, CrCl > 30 mL/min) AND/OR *Sequential Compression Device (SCD) 5 or more Highest Order ONE of the following medications: *Heparin 5000 units SQ TID (Preferred with Epidurals) *Enoxaparin/Lovenox 40 mg SQ daily (WT < 150 kg, CrCl > 30 mL/min) *Enoxaparin/Lovenox 30 mg SQ daily (WT < 150 kg, CrCl > 10-29 mL/min) *Enoxaparin/Lovenox 30 mg SQ BID (WT < 150 kg, CrCl > 30 mL/min) AND *Sequential Compression Device (SCD) Assessment and Plan Assessment and Plan Assessment/plan: 1. New onset numbness/weakness MRI/MRA brain pending CT head negative for acute process Neurology consulted, appreciate recommendations 2. Bladder spasm Oxybutynin Case management consult to assist [facility] 3. Depression/anxiety Continue home sertraline and trazodone 4. Alcohol abuse Thiamine/folate/multivitamins [facility] protocol Monitor for signs of withdrawal 5. COPD DuoNeb's when necessary 6. Hypertension/hyperlipidemia Patient's home medications unclear Continue once reconciled Clonidine when necessary FEN Heart healthy diet Electrolytes: Monitor and replete when necessary Heparin Jackeline Fritz MD Jan 12, 2018 21:07
[2018-01-12] MEDS: OXYBUTYNIN CHLORIDE 5 MG TAB PO SCH (22:50)
[2018-01-12] MEDS: SODIUM CHLORIDE 0.9% FLUSH 10 ML FLUSH IV FLUSH SCH (22:51)
[2018-01-12] MEDS: RESP: ALBUTEROL 2.5 MG/IPRATROPIUM 0.5 MG NEB (PRN) NEB (22:57)
[2018-01-12] MEDS: INSULIN ASPART SUPPLEMENTAL SCALE SQ SCH (23:30)
[2018-01-13] VITALS (9 sets, daily range): BP systolic 115–124; BP diastolic 59–63; PULSE 70–88; RESP 16–20; TEMP 97.8–98.2; O2SAT 96–98
[2018-01-13 07:45] LABS: BASOPHIL % 0.3 % (0.0-2.0); EOSINOPHIL % 0.1 % (0.0-4.0); HEMATOCRIT 42.1 % (39.0-51.0); HEMOGLOBIN 14.2 GM/DL (13.0-17.0); LYMPH % 16.7 % (9.0-44.0); LYMPHOCYTE # 2.5 TH/MM3 (1.0-4.8); MEAN CELL VOLUME 86.6 FL (80.0-100.0); MEAN CORPUSCULAR HEMOGLOBIN 29.2 PG (27.0-34.0); MEAN CORPUSCULAR HGB CONC 33.7 % (32.0-36.0); MEAN PLATELET VOLUME 6.7 FL (7.0-11.0); MONO % 8.2 % (0.0-8.0); MONOCYTE # 1.2 TH/MM3 (0-0.9); NEUT % 74.7 % (16.0-70.0); PLATELET COUNT 294 TH/MM3 (150-450); RED BLOOD COUNT 4.86 MIL/MM3 (4.50-5.90); WHITE BLOOD COUNT 14.8 TH/MM3 (4.0-11.0)
[2018-01-13] MEDS: INSULIN ASPART SUPPLEMENTAL SCALE SQ SCH ×4 (08:00→21:00)
[2018-01-13 08:11] LABS: ALBUMIN 3.6 GM/DL (3.4-5.0); ALT (GPT) 35 U/L (12-78); AST (GOT) 20 U/L (15-37); BICARBONATE 23.6 MEQ/L (21.0-32.0); BLOOD UREA NITROGEN 10 MG/DL (7-18); CALCIUM 9.3 MG/DL (8.5-10.1); CHLORIDE 104 MEQ/L (98-107); CHOLESTEROL 239 MG/DL (120-200); CREATININE 0.89 MG/DL (0.60-1.30); GLOMERULAR FILTRATION RATE 86 ML/MIN (>89); GLUCOSE,RANDOM 107 MG/DL (74-106); SODIUM (NA) 137 MEQ/L (136-145); TRIGLYCERIDES 190 MG/DL (42-150)
[2018-01-13 08:13] LABS: ALKALINE PHOSPHATASE 140 U/L (45-117); CHOLESTEROL/ HDL RATIO 4.59 RATIO; LDL CHOLESTEROL 149 MG/DL (0-99); TOTAL BILIRUBIN ADULT 0.3 MG/DL (0.2-1.0); TOTAL PROTEIN 7.4 GM/DL (6.4-8.2)
[2018-01-13] MEDS ORDERED: FLUO.05%ST TOPICAL (09:39)
[2018-01-13] MEDS ORDERED: ASPI81TA23 PO (09:39)
[2018-01-13] MEDS ORDERED: MULT-65 PO (09:39)
[2018-01-13] MEDS ORDERED: QUET1TAB8 PO ×2 (09:39)
[2018-01-13] MEDS ORDERED: SERT-129 PO (09:39)
[2018-01-13] MEDS ORDERED: TIOT12.9 INH (09:39)
[2018-01-13] MEDS ORDERED: LACTTAB8 PO (09:39)
[2018-01-13] MEDS ORDERED: TAMS0.4C4 (09:39)
[2018-01-13] MEDS ORDERED: METO25TA3 PO (09:39)
[2018-01-13] MEDS ORDERED: SENN8.6T81 PO (09:39)
[2018-01-13] MEDS ORDERED: ALBUAER3 INH (09:39)
[2018-01-13] MEDS ORDERED: QUET5TAB PO (09:39)
[2018-01-13] MEDS ORDERED: SIMV20TA PO (09:39)
[2018-01-13] MEDS ORDERED: ASPI-516 PO (09:39)
[2018-01-13] MEDS ORDERED: MIRA3350 PO (09:39)
[2018-01-13] MEDS ORDERED: PRAZ1CAP PO (09:39)
[2018-01-13] MEDS ORDERED: HYDR-3133 PO (09:39)
[2018-01-13] MEDS ORDERED: GABA800T PO (09:39)
[2018-01-13] MEDS ORDERED: OMEP40CA2 PO (09:39)
[2018-01-13] MEDS: FOLIC ACID 1 MG TAB PO SCH (10:59)
[2018-01-13] MEDS: SERTRALINE HCL 50 MG TAB PO SCH (10:59)
[2018-01-13] MEDS: MULTIVITAMINS/MINERALS THERAPEUTIC TAB PO SCH (11:00)
[2018-01-13] MEDS: THIAMINE HCL 100 MG TAB PO SCH (11:00)
[2018-01-13] MEDS: OXYBUTYNIN CHLORIDE 5 MG TAB PO SCH ×2 (11:00→21:14)
[2018-01-13] MEDS: SODIUM CHLORIDE 0.9% FLUSH 10 ML FLUSH IV FLUSH SCH ×2 (11:01→21:14)
[2018-01-13] MEDS: HEPARIN SODIUM - SQ 10,000 UNITS/ML VIAL SQ SCH ×2 (11:02→21:13)
[2018-01-13] MEDS: LORazepam 2 MG/ML VIAL IV PUSH PRN ×3 (11:09→22:56)
--- NOTE | 2018-01-13 11:12 | RADRPT ---
EXAM DATE/TIME: 01/13/2018 09:35 [facility] COMPARISON: CT BRAIN W/O CONTRAST, January 12, 2018, 17:30. INDICATIONS : Weakness. MEDICAL HISTORY : Chronic obstructive pulmonary disease. Hypertension. SURGICAL HISTORY : None. ENCOUNTER: Initial ACUITY: 1 day PAIN SCORE: 0/10 LOCATION: cranial Please note a normal MRA of the brain does not entirely exclude the possibility of a small aneurysm, nor the possibility of distal intracranial vessel disease. TECHNIQUE: 3D time of flight MRA was performed. Source images, multiplanar STS MIP, and 3D volume MIP reconstru ctions were reviewed. FINDINGS: Examination is somewhat limited by patient motion. Anterior circulation: Distal intracranial internal carotid arteries are patent with flow extending to the middle and anteri or cerebral arteries. There is no evidence for aneurysm, vessel truncation or stenosis, and no eviden ce for vascular malformation. Posterior circulation: Symmetric distal vertebral arteries with flow extending to basilar artery. There is no evidence for aneurysm, vessel truncation or stenosis, and no evidence for vascular malformation. CONCLUSION: 1. Limited examination secondary to patient motion. 2. Unremarkable MRA examination of [place]. No large vessel occlusion or aneurysm. Anival Ramsey MD on January 13, 2018 at 11:06 Board Certified Radiologist. This report was verified electronically.
--- NOTE | 2018-01-13 11:25 | EKG ---
Date Performed: 01/12/2018 Time Performed: 12:41:16 PTAGE: 62 years EKG: Sinus rhythm MODERATE ST DEPRESSION ABNORMAL ECG PREVIOUS TRACING 01/02/2012 Since the previous tracing, no significant change noted DOCTOR: Salvador Manzanares Interpretating Date/Time 01/13/2018 11:24:10
--- NOTE | 2018-01-13 13:05 | PD.CONS ---
History of Present Illness Service Neurology Consult Requested By medical Reason for Consult tia Primary Care Physician Unknown History of Present Illness History of Present Illness 62-year-old male with a past medical history significant for anxiety/depression , admitted for left sided weakness/tremors x >24 hrs. not tpa candidate. [facility]. states he is living with his sister locally, relocated from the [facility]. ct brain nacip. smokes 1ppd x decades. not on any blood thinner. Review of Systems Except as stated in HPI: all other systems reviewed are Neg Past Family Social History Past Medical History Anxiety/depression COPD Hypertension Hyperlipidemia Past Surgical History None Reported Medications Reported Meds & Active Scripts Active Reported Trazodone (Trazodone HCl) 100 Mg Tablet 100 Mg PO HS Sertraline (Sertraline HCl) 50 Mg Tab 50 Mg PO DAILY Hydroxyzine HCl 50 Mg Tab 50 Mg PO TID Seroquel (Quetiapine Fumarate) 200 Mg Tab 200 Mg PO TID Allergies: Uncoded Allergies: environmental (Allergy, Intermediate, Irritation, 06/17/10) Family History Negative for CAD/DM Social History Smokes approximately one pack of cigarettes per day. Drinks approximately 4-5 beers daily. Denies illicit drugs. Review of Systems All other ROS: ROS reviewed as documented in chart Past Family Social History Allergies: Uncoded Allergies: environmental (Allergy, Intermediate, Irritation, 06/17/10) excess mucus Active Ordered Medications Current Medications Medications (Trade) Dose Ordered Sig/Deo Route Start Time Stop Time Status Last Admin (NS Flush) 2 ml UNSCH PRN IV FLUSH 01/12/18 18:45 (NS Flush) 2 ml BID IV FLUSH 01/12/18 21:00 01/13/18 11:01 (Tylenol) 650 mg Q4H PRN PO 01/12/18 18:45 (Zofran Inj) 4 mg Q6H PRN IVP 01/12/18 18:45 (Restoril) 15 mg HS PRN PO 01/12/18 21:00 (Tylenol) 650 mg Q6H PRN PO 01/12/18 18:45 (Narcan Inj) 0.4 mg UNSCH PRN IV PUSH 01/12/18 18:45 (Milk Of Magnesia Liq) 30 ml Q12H PRN PO 01/12/18 18:45 (Duoneb Neb) 1 ampule Q2HR NEB PRN NEB 01/12/18 18:45 01/12/18 22:57 (Zoloft) 50 mg DAILY PO 01/13/18 09:00 01/13/18 10:59 (Desyrel) 100 mg HS PO 01/13/18 21:00 (NovoLOG SUPPLEMENTAL SCALE) 1 ACHS SQ 01/12/18 21:00 01/12/18 23:30 (D50w (Vial) Inj) 50 ml UNSCH PRN IV PUSH 01/12/18 18:45 (Glucagon Inj) 1 mg UNSCH PRN OTHER 01/12/18 18:45 (Folate) 1 mg DAILY PO 01/13/18 09:00 01/18/18 08:59 01/13/18 10:59 (Vitamin B1) 100 mg DAILY PO 01/13/18 09:00 01/13/18 11:00 (Theragran M Tab) 1 tab DAILY PO 01/13/18 09:00 01/18/18 08:59 01/13/18 11:00 (Romazicon Inj) 0.2 mg Q1M PRN IV PUSH 01/12/18 21:00 (Ativan) 1 mg Q4H PRN PO 01/12/18 21:00 (Ativan Inj) 1 mg Q4H PRN IV PUSH 01/12/18 21:00 (Ativan) 2 mg Q2H PRN PO 01/12/18 21:00 (Ativan Inj) 2 mg Q2H PRN IV PUSH 01/12/18 21:00 01/13/18 11:09 (Ativan Inj) 2 mg Q1H PRN IV PUSH 01/12/18 21:00 01/12/18 22:49 (Ativan Inj) 2 mg Q15M PRN IV PUSH 01/12/18 21:00 (Ditropan) 5 mg Q12HR PO 01/12/18 21:00 01/13/18 11:00 (Heparin Inj) 5,000 units Q12HR SQ 01/13/18 09:00 01/13/18 11:02 (Ecotrin Ec) 162 mg DAILY PO 01/14/18 09:00 UNV (Neurontin) 800 mg BID PO 01/13/18 21:00 UNV (Lopressor) 12.5 mg BID PO 01/13/18 21:00 UNV (Minipress) 1 mg HS PO 01/13/18 21:00 UNV (SEROquel) 200 mg TID PO 01/13/18 13:00 UNV (Flomax) 0.4 mg HS PO 01/13/18 21:00 UNV Non-Formulary Medication 40 mg DAILY PO 01/13/18 12:00 UNV Non-Formulary Medication 20 mg HS PO 01/13/18 21:00 UNV Non-Formulary Medication 2 puff DAILY INH 01/14/18 09:00 UNV Exam I&O / VS Vital Signs Date Time Temp Pulse Resp B/P (MAP) Pulse Ox O2 Delivery O2 Flow Rate FiO2 01/13/18 11:18 87 01/13/18 08:10 98 21 01/13/18 08:05 98.2 70 18 120/62 (81) 98 01/13/18 08:05 98.2 01/13/18 04:00 84 01/13/18 02:06 98.0 80 16 119/59 (79) 98 01/12/18 23:03 94 21 01/12/18 22:44 98.2 85 16 114/69 (84) 98 01/12/18 22:32 01/12/18 19:05 89 16 134/75 (94) 96 Room Air 01/12/18 17:03 84 19 141/86 (104) 97 Room Air 01/12/18 14:43 88 18 136/87 (103) 97 General: Alert and Oriented, No acute distress Eye: EOMI Respiratory: Non-labored respirations Neurologic: Alert, Oriented Psychiatric: Cooperative, Appropriate mood & affect Exam Comments ox 3, follows, vff, face sym, ue tremors with posture, mild left hemiataxia Review/Management Diagnosis/Plan: (1) TIA (transient ischemic attack) ICD Codes: G45.9 - Transient cerebral ischemic attack, unspecified Status: Acute Plan: possible lacunar infarct causing ataxic-hemiparesis has ue tremors which could be 2/2 anti-psychotics states he had 4 beers yesterday and denies binge drinking recs f/u mri/mra brain aspirin/statin tobacco cessation p.t. eval [facility] (2) Depression ICD Codes: F32.9 - Major depressive disorder, single episode, unspecified (3) Anxiety ICD Codes: F41.9 - Anxiety disorder, unspecified Problem Qualifiers (1) TIA (transient ischemic attack): Qualified Codes: G45.9 - Transient cerebral ischemic attack, unspecified Agus Hooks MD Jan 13, 2018 13:05
--- NOTE | 2018-01-13 13:27 | RADRPT ---
EXAM DATE/TIME: 01/13/2018 09:35 [facility] COMPARISON: CT BRAIN W/O CONTRAST, January 12, 2018, 17:30. INDICATIONS : Weakness. MEDICAL HISTORY : Chronic obstructive pulmonary disease. Hypertension. SURGICAL HISTORY : None. ENCOUNTER: Initial ACUITY: 1 day PAIN SCORE: 0/10 LOCATION: cranial TECHNIQUE: Multiplanar, multisequence MRI of the brain was performed without contrast. FINDINGS: CEREBRUM: The ventricles are normal for age. No evidence of midline shift, mass lesion, hemorrhage or acute in farction. No extraaxial fluid collections are seen. The pituitary gland and suprasellar cistern are normal in configuration. WHITE MATTER: No significant signal abnormalities are seen in the white matter. POSTERIOR FOSSA: The cerebellum and brainstem are intact. The 4th ventricle is midline. The cerebellopontine angle is unremarkable. The cerebellar tonsils are normal in position. DIFFUSION IMAGING: No focal areas of restricted diffusion are seen. No evidence of acute infarction. EXTRACRANIAL: The visualized portions of the orbits are unremarkable. There is a mucous retention cyst within the r ight maxillary sinus as well as mild mucosal thickening involving the bilateral maxillary and ethmoid sinuses. CONCLUSION: 1. No acute intracranial disease. 2. Mucous retention cyst within the right maxillary sinus as well as mild mucosal thickening involvin g the ethmoid and maxillary sinuses bilaterally. Pravin Jones MD on January 13, 2018 at 13:22 Board Certified Radiologist. This report was verified electronically.
[2018-01-13] MEDS: PANTOPRAZOLE SOD 40 MG DELAYED RELEASE TAB PO SCH (14:01)
[2018-01-13] MEDS: QUEtiapine FUMARATE 200 MG TAB PO SCH ×2 (14:01→17:55)
[2018-01-13] MEDS: BACLOFEN 10 MG TAB PO SCH ×2 (14:07→21:14)
--- NOTE | 2018-01-13 15:31 | HHI.PR ---
Subjective Remarks The patient is in the chair. He is tremulous receiving Ativan. Some nausea no vomiting able to eat some. Complains of chronic back pain and neck pain he takes pain medications will restart. No fever or chills. Cough nonproductive. Bladder spasm is better. Objective Vitals Vital Signs Date Time Temp Pulse Resp B/P (MAP) Pulse Ox O2 Delivery O2 Flow Rate FiO2 01/13/18 11:18 87 01/13/18 08:10 98 21 01/13/18 08:05 98.2 70 18 120/62 (81) 98 01/13/18 08:05 98.2 78 20 118/60 (79) 96 01/13/18 04:00 84 01/13/18 02:06 98.0 80 16 119/59 (79) 98 01/12/18 23:03 94 21 01/12/18 22:44 98.2 85 16 114/69 (84) 98 01/12/18 22:32 01/12/18 19:05 89 16 134/75 (94) 96 Room Air 01/12/18 17:03 84 19 141/86 (104) 97 Room Air Result Diagram: 01/13/18 0700 01/13/18 0700 Imaging Last Impressions Head Magnetic Resonance Angiography 01/13/18 0000 Signed Impressions: Service Date/Time: Saturday, January 13, 2018 09:35 - CONCLUSION: 1. Limited examination secondary to patient motion. 2. Unremarkable MRA examination of [place]. No large vessel occlusion or aneurysm. Anival Ramsey MD Carotid Artery Ultrasound 01/13/18 0000 Signed Impressions: Service Date/Time: Saturday, January 13, 2018 14:32 - CONCLUSION: 1. Bilateral carotid plaque without significant flow-limiting stenosis. 2. Antegrade vertebral artery flow bilaterally. Anival Ramsey MD Brain MRI 01/13/18 0000 Signed Impressions: Service Date/Time: Saturday, January 13, 2018 09:35 - CONCLUSION: 1. No acute intracranial disease. 2. Mucous retention cyst within the right maxillary sinus as well as mild mucosal thickening involving the ethmoid and maxillary sinuses bilaterally. Pravin Jones MD Chest X-Ray 01/12/18 1225 Signed Impressions: Service Date/Time: December 12:41 - CONCLUSION: 1. Chronic elevation of the right hemidiaphragm with minimal right basilar atelectasis/scarring. 2. Minimal linear left basilar airspace disease, presumably atelectasis/scarring. Anival Ramsey MD Head CT 01/12/18 0000 Signed Impressions: Service Date/Time: December 17:30 - CONCLUSION: 1. No acute intracranial abnormalities. Mucosal thickening ethmoid air cells. Carlos Macdonald MD Abdomen/Pelvis CT 01/12/18 0000 Signed Impressions: Service Date/Time: December 14:25 - CONCLUSION: 1. Subsegmental right basilar air space disease, probably atelectasis or mild inflammatory change with elevated right hemidiaphragm. 2. 3.7 cm infrarenal abdominal aortic aneurysm. No evidence for rupture. 3. Mild fatty liver. Small ventral hernias without evidence for incarceration or obstruction. 4. Colonic diverticulosis without diverticulitis. Carlos Macdonald MD Objective Remarks GENERAL: male lying in bed, tremulous CARDIOVASCULAR: Regular rate and rhythm without murmurs, gallops, or rubs. RESPIRATORY: Clear to auscultation. Breath sounds equal bilaterally. No wheezes , rales, or rhonchi. GASTROINTESTINAL: Abdomen soft, non-tender, nondistended. No hepato-splenomegaly , or palpable masses. No guarding. MUSCULOSKELETAL: Extremities without clubbing, cyanosis, or edema. No joint tenderness, effusion, or edema noted. No calf tenderness. NEUROLOGICAL: Awake and alert. Cranial nerves II through XII intact. Motor and sensory grossly within normal limits. Normal speech. Spontaneously moves all 4 extremities. Difficult to assess strength as patient with severe tremors and questionable participation in exam. A/P Assessment and Plan 1. New onset numbness/weakness MRI brain reviewed, and no acute intracranial disease. Sinus disease bilaterally ethmoid and maxillary sinuses with retention cyst in the right maxillary sinus. MRA brain reviewed, normal Carotid ultrasound reviewed fairly normal CT head negative for acute process Neurology consulted, appreciate recommendations 2. Bladder spasm Oxybutynin Restart home meds Case management consult to assist [facility] 3. Depression/anxiety Continue home sertraline and trazodone 4. Alcohol abuse Thiamine/folate/multivitamins [facility] protocol Monitor for signs of withdrawal 5. COPD DuoNeb's when necessary 6. Hypertension/hyperlipidemia Patient's home medications unclear Continue once reconciled Clonidine when necessary Restart home medications as appropriate FEN Heart healthy diet Electrolytes: Monitor and replete when necessary Heparin Discussed with the patient, nurse. Norma Baum MD Jan 13, 2018 15:31
--- NOTE | 2018-01-13 16:12 | RADRPT ---
EXAM DATE/TIME: 01/13/2018 14:32 [facility] COMPARISON: No previous studies available for comparison. INDICATIONS : Cerebrovascular accident. MEDICAL HISTORY : Hypercholesterolemia. Hypertension. Chronic obstructive pulmonary disease. GERD. Arthritis. Bipolar. SURGICAL HISTORY : Cataract surgery. ENCOUNTER: Initial ACUITY: 1 day PAIN SCORE: 0/10 LOCATION: Bilateral neck PEAK SYSTOLIC VELOCITIES (cm/sec): ICA/CCA RATIO: Right: 1.0 Left: 0.7 ICA: Right: 62 Left: 66 CCA: Right: 65 Left: 98 ECA: Right: 131 Left: 110 VERTEBRAL: Right: 50 antegrade Left: 46 antegrade Elevated flow velocities and ICA/CCA ratios have been found to correlate with increased degrees of vessel stenosis, calculated as percentage of diameter relative to a normal segment of distal ICA/CCA FINDINGS: RIGHT CAROTID: No significant stenosis is visualized. The waveforms are within normal limits. LEFT CAROTID: No significant stenosis is visualized. The waveforms are within normal limits. VERTEBRAL ARTERIES: Antegrade flow is seen in both vertebral arteries. MISCELLANEOUS: None. CONCLUSION: 1. Bilateral carotid plaque without significant flow-limiting stenosis. 2. Antegrade vertebral artery flow bilaterally. Anival Ramsey MD on January 13, 2018 at 16:09 Board Certified Radiologist. This report was verified electronically.
[2018-01-13] MEDS ORDERED: NON-FORMULARY DRUG (Simvastatin 20 MG) PO SCH (21:00)
[2018-01-13] MEDS: ATORVASTATIN 40 MG TAB PO SCH (21:14)
[2018-01-13] MEDS: traZODone HCL 100 MG TAB PO SCH (21:14)
[2018-01-13] MEDS: TAMSULOSIN HCL 0.4 MG CAP PO SCH (21:14)
[2018-01-13] MEDS: GABAPENTIN 400 MG CAP PO SCH (21:14)
[2018-01-13] MEDS: METOPROLOL TARTRATE 25 MG TAB PO SCH (21:14)
[2018-01-13] MEDS: RESP: ALBUTEROL 2.5 MG/IPRATROPIUM 0.5 MG NEB (PRN) NEB (21:27)
[2018-01-13] MEDS: PRAZOSIN HCL 1 MG CAP PO SCH (22:56)
[2018-01-14 05:10] VITALS: BP 124/60; PULSE 62; RESP 14; TEMP 97.5; O2SAT 97
[2018-01-14 07:09] VITALS: PULSE 69
[2018-01-14] MEDS: INSULIN ASPART SUPPLEMENTAL SCALE SQ SCH ×4 (08:00→21:00)
[2018-01-14 08:20] VITALS: BP 129/85; PULSE 84; RESP 16; TEMP 98; O2SAT 95
[2018-01-14] MEDS ORDERED: SPIRIVA RESPIMAT INH SCH (09:00)
[2018-01-14] MEDS: THIAMINE HCL 100 MG TAB PO SCH (09:40)
[2018-01-14] MEDS: METOPROLOL TARTRATE 25 MG TAB PO SCH ×2 (09:41→22:32)
[2018-01-14] MEDS: ASPIRIN EC 81 MG TABEC PO SCH (09:41)
[2018-01-14] MEDS: QUEtiapine FUMARATE 200 MG TAB PO SCH ×3 (09:41→17:31)
[2018-01-14] MEDS: SERTRALINE HCL 50 MG TAB PO SCH (09:42)
[2018-01-14] MEDS: PANTOPRAZOLE SOD 40 MG DELAYED RELEASE TAB PO SCH (09:42)
[2018-01-14] MEDS: FOLIC ACID 1 MG TAB PO SCH (09:42)
[2018-01-14] MEDS: MULTIVITAMINS/MINERALS THERAPEUTIC TAB PO SCH (09:42)
[2018-01-14] MEDS: OXYBUTYNIN CHLORIDE 5 MG TAB PO SCH ×2 (09:42→22:32)
[2018-01-14] MEDS: GABAPENTIN 400 MG CAP PO SCH ×2 (09:42→22:32)
[2018-01-14] MEDS: HEPARIN SODIUM - SQ 10,000 UNITS/ML VIAL SQ SCH ×2 (09:43→22:33)
[2018-01-14] MEDS: SODIUM CHLORIDE 0.9% FLUSH 10 ML FLUSH IV FLUSH SCH ×2 (09:43→21:00)
[2018-01-14] MEDS: BACLOFEN 10 MG TAB PO SCH ×3 (09:51→22:31)
[2018-01-14] MEDS: LORazepam 2 MG/ML VIAL IV PUSH PRN ×2 (09:54→13:49)
[2018-01-14 11:34] LABS: MEAN CORPUSCULAR HEMOGLOBIN 30.2 PG (27.0-34.0); MEAN CORPUSCULAR HGB CONC 35.1 % (32.0-36.0); PLATELET COUNT 233 TH/MM3 (150-450); RED BLOOD COUNT 4.65 MIL/MM3 (4.50-5.90); RED CELL DISTRIBUTION WIDTH 18.3 % (11.6-17.2); WHITE BLOOD COUNT 9.6 TH/MM3 (4.0-11.0)
[2018-01-14 12:07] LABS: BICARBONATE 24.5 MEQ/L (21.0-32.0); CALCIUM 8.9 MG/DL (8.5-10.1); CREATININE 0.93 MG/DL (0.60-1.30)
[2018-01-14 12:15] VITALS: BP 90/62; PULSE 66; RESP 16; TEMP 97.6; O2SAT 94
--- NOTE | 2018-01-14 13:46 | HHI.PR ---
Review/Management Diagnosis/Plan: (1) TIA (transient ischemic attack) ICD Codes: G45.9 - Transient cerebral ischemic attack, unspecified Status: Acute Plan: possible lacunar infarct causing ataxic-hemiparesis mri negative for acute infarct. symptoms improved mra brain/carotids nml r/o cord lesion has ue tremors which could be 2/2 aepq-lswbtnpsct-sgfd tremors today moderate hld states he had 4 beers yesterday and denies binge drinking recs check mri cspine; if no cord lesion can be dc'd and f/u outpatient aspirin/statin tobacco cessation p.t. eval [facility] (2) Depression ICD Codes: F32.9 - Major depressive disorder, single episode, unspecified (3) Anxiety ICD Codes: F41.9 - Anxiety disorder, unspecified Subjective Subjective Comments No acute events reported reports left side better but still feels a little numb also c/o of bladder spasms No headache No chest pain No dyspnea Active Medications Current Medications Medications (Trade) Dose Ordered Sig/Deo Route Start Time Stop Time Status Last Admin (NS Flush) 2 ml UNSCH PRN IV FLUSH 01/12/18 18:45 (NS Flush) 2 ml BID IV FLUSH 01/12/18 21:00 01/14/18 09:43 (Tylenol) 650 mg Q4H PRN PO 01/12/18 18:45 (Zofran Inj) 4 mg Q6H PRN IVP 01/12/18 18:45 (Restoril) 15 mg HS PRN PO 01/12/18 21:00 (Tylenol) 650 mg Q6H PRN PO 01/12/18 18:45 (Narcan Inj) 0.4 mg UNSCH PRN IV PUSH 01/12/18 18:45 (Milk Of Magnesia Liq) 30 ml Q12H PRN PO 01/12/18 18:45 (Duoneb Neb) 1 ampule Q2HR NEB PRN NEB 01/12/18 18:45 01/13/18 21:27 (Zoloft) 50 mg DAILY PO 01/13/18 09:00 01/14/18 09:42 (Desyrel) 100 mg HS PO 01/13/18 21:00 01/13/18 21:14 (NovoLOG SUPPLEMENTAL SCALE) 1 ACHS SQ 01/12/18 21:00 01/12/18 23:30 (D50w (Vial) Inj) 50 ml UNSCH PRN IV PUSH 01/12/18 18:45 (Glucagon Inj) 1 mg UNSCH PRN OTHER 01/12/18 18:45 (Folate) 1 mg DAILY PO 01/13/18 09:00 01/18/18 08:59 01/14/18 09:42 (Vitamin B1) 100 mg DAILY PO 01/13/18 09:00 01/14/18 09:40 (Theragran M Tab) 1 tab DAILY PO 01/13/18 09:00 01/18/18 08:59 01/14/18 09:42 (Romazicon Inj) 0.2 mg Q1M PRN IV PUSH 01/12/18 21:00 (Ativan) 1 mg Q4H PRN PO 01/12/18 21:00 (Ativan Inj) 1 mg Q4H PRN IV PUSH 01/12/18 21:00 01/14/18 09:54 (Ativan) 2 mg Q2H PRN PO 01/12/18 21:00 (Ativan Inj) 2 mg Q2H PRN IV PUSH 01/12/18 21:00 01/13/18 22:56 (Ativan Inj) 2 mg Q1H PRN IV PUSH 01/12/18 21:00 01/12/18 22:49 (Ativan Inj) 2 mg Q15M PRN IV PUSH 01/12/18 21:00 (Ditropan) 5 mg Q12HR PO 01/12/18 21:00 01/14/18 09:42 (Heparin Inj) 5,000 units Q12HR SQ 01/13/18 09:00 01/14/18 09:43 (Ecotrin Ec) 162 mg DAILY PO 01/14/18 09:00 01/14/18 09:41 (Neurontin) 800 mg BID PO 01/13/18 21:00 01/14/18 09:42 (Lopressor) 12.5 mg BID PO 01/13/18 21:00 01/14/18 09:41 (Minipress) 1 mg HS PO 01/13/18 21:00 01/13/18 22:56 (SEROquel) 200 mg TID PO 01/13/18 13:30 01/14/18 13:10 (Flomax) 0.4 mg HS PO 01/13/18 21:00 01/13/18 21:14 (Protonix) 40 mg DAILY PO 01/13/18 14:00 01/14/18 09:42 Patient Own Medication PT OWN MED: SPIR... DAILY INH 01/14/18 09:00 Future Hold (Lipitor) 40 mg HS PO 01/13/18 21:00 01/13/18 21:14 (Lioresal) 10 mg Q8HR PO 01/13/18 14:00 01/14/18 13:10 Allergies Allergies Coded Allergies No Known Drug Allergies (Verified Allergy, Unknown, 01/13/18) Uncoded Allergies environmental ( Allergy, Intermediate, Irritation, 06/17/10) Review of Systems All other ROS: ROS reviewed as documented in chart Exam I&O / VS Vital Signs Date Time Temp Pulse Resp B/P (MAP) Pulse Ox O2 Delivery O2 Flow Rate FiO2 01/14/18 12:15 97.6 66 16 90/62 (71) 94 01/14/18 08:20 98.0 84 16 129/85 (100) 95 01/14/18 07:09 69 01/14/18 05:10 97.5 62 14 124/60 (81) 97 01/13/18 21:25 98 01/13/18 21:23 97.8 88 16 115/63 (80) 98 01/13/18 16:45 97.9 70 18 124/62 (82) 96 01/13/18 15:55 84 General: Alert and Oriented, No acute distress Eye: EOMI Respiratory: Non-labored respirations Neurologic: Alert, Oriented Psychiatric: Cooperative, Appropriate mood & affect Exam Comments ox 3, follows, vff, face sym, minimal tremors with posture, no drift, strength 5 /5 jodi, no clonus, planterflexor Objective Micro and Labs Laboratory Tests Test 01/14/18 11:15 White Blood Count 9.6 Red Blood Count 4.65 Hemoglobin 14.0 Hematocrit 40.0 Mean Corpuscular Volume 86.0 Mean Corpuscular Hemoglobin 30.2 Mean Corpuscular Hemoglobin Concent 35.1 Red Cell Distribution Width 18.3 Platelet Count 233 Mean Platelet Volume 7.0 Blood Urea Nitrogen 15 Creatinine 0.93 Random Glucose 147 Calcium Level 8.9 Sodium Level 139 Potassium Level 3.4 Chloride Level 106 Carbon Dioxide Level 24.5 Anion Gap 9 Estimat Glomerular Filtration Rate 82 Problem Qualifiers (1) TIA (transient ischemic attack): Qualified Codes: G45.9 - Transient cerebral ischemic attack, unspecified Agus Hooks MD Jan 14, 2018 13:46
--- NOTE | 2018-01-14 15:19 | HHI.PR ---
Subjective Remarks In bed appears in nad No n/v/d/c Says he feels improving some . able to ambulate with a walker with pT. Still with tremors. Eatign fairly well. Objective Vitals Vital Signs Date Time Temp Pulse Resp B/P (MAP) Pulse Ox O2 Delivery O2 Flow Rate FiO2 01/14/18 12:15 97.6 66 16 90/62 (71) 94 01/14/18 08:20 98.0 84 16 129/85 (100) 95 01/14/18 07:09 69 01/14/18 05:10 97.5 62 14 124/60 (81) 97 01/13/18 21:25 98 01/13/18 21:23 97.8 88 16 115/63 (80) 98 01/13/18 16:45 97.9 70 18 124/62 (82) 96 01/13/18 15:55 84 Result Diagram: 01/14/18 1115 01/14/18 1115 Objective Remarks GENERAL: male lying in bed, tremulous CARDIOVASCULAR: Regular rate and rhythm without murmurs, gallops, or rubs. RESPIRATORY: Clear to auscultation. Breath sounds equal bilaterally. No wheezes , rales, or rhonchi. GASTROINTESTINAL: Abdomen soft, non-tender, nondistended. No hepato-splenomegaly , or palpable masses. No guarding. MUSCULOSKELETAL: Extremities without clubbing, cyanosis, or edema. No joint tenderness, effusion, or edema noted. No calf tenderness. NEUROLOGICAL: Awake and alert. Cranial nerves II through XII intact. Motor and sensory grossly within normal limits. Normal speech. Spontaneously moves all 4 extremities. Difficult to assess strength as patient with severe tremors and questionable participation in exam. A/P Assessment and Plan 1. New onset numbness/weakness MRI brain reviewed, and no acute intracranial disease. Sinus disease bilaterally ethmoid and maxillary sinuses with retention cyst in the right maxillary sinus. MRA brain reviewed, normal Carotid ultrasound reviewed fairly normal CT head negative for acute process Neurology consulted, appreciate recommendations 2. Bladder spasm Oxybutynin Restart home meds Case management consult to assist [facility] 3. Depression/anxiety Continue home sertraline and trazodone 4. Alcohol abuse Thiamine/folate/multivitamins [facility] protocol Monitor for signs of withdrawal 5. COPD DuoNeb's when necessary 6. Hypertension/hyperlipidemia Patient's home medications unclear Continue once reconciled Clonidine when necessary Restart home medications as appropriate FEN Heart healthy diet Electrolytes: Monitor and replete when necessary Heparin Discussed with the patient, nurse. Norma Baum MD Jan 14, 2018 15:19
[2018-01-14 16:00] VITALS: BP 94/55; PULSE 67; RESP 16; TEMP 97.7; O2SAT 95
--- NOTE | 2018-01-14 16:02 | RADRPT ---
EXAM DATE/TIME: 01/14/2018 14:30 [place] COMPARISON: MRI BRAIN W/O CONTRAST, January 13, 2018, 9:35. INDICATIONS : Weakness. MEDICAL HISTORY : Chronic obstructive pulmonary disease. Hypertension. Hypercholesterolemia. GERD SURGICAL HISTORY : None. ENCOUNTER: Initial ACUITY: 1 day PAIN SCORE: 0/10 LOCATION: [facility] TECHNIQUE: Multiplanar, multisequence MRI examination of the cervical spine was performed. FINDINGS: Sagittal and coronal imaging demonstrate adequate alignment of the cervical vertebral bodies. There a re desiccated, degenerated disc throughout the cervical spine. No significant abnormal marrow signal is identified. No significant abnormal signal is seen within the cervical cord. The cerebellar tonsil s are in their appropriate location. C2/3: The thecal space is adequate. The neural foramina are adequate. There is mild facet arthritis bilater ally. C3/4: There is a degenerated disc. There is broad-based disc protrusion and diffuse osteophytic ridging. Th is effaces the ventral thecal sac and abuts the ventral aspect of the cord. There is flattening of th e ventral aspect of the cord. There is moderate facet arthritis bilaterally with degenerative facet a nd ligamentous hypertrophy. There is bony narrowing of the foramina bilaterally. Overall, this combin es and results in a moderate spinal stenosis and bilateral foraminal narrowing at this level. C4/5: There is desiccation of the disc. There is minimal disc bulge and osteophytic ridging. The residual t hecal space is adequate. There is degenerative facet arthritis bilaterally. There is moderate bony fo raminal narrowing on the right. There is mild bony foraminal narrowing on the left. C5/6: There is a degenerated disc. There is broad-based disc bulge and diffuse osteophytic ridging. This ef faces the ventral thecal sac and abuts the ventral aspect of the cord. There is slight flattening of the ventral aspect of the cord. There is uncovertebral osteophyte encroaching upon the lateral recess and base of the foramina bilaterally. There is moderate facet arthritis bilaterally. Overall, there is a minimal degree of spinal stenosis with moderate to severe bony foraminal narrowing on the right. There is moderate bony foraminal narrowing on the left. C6/7: There is desiccation of the disc. There is minimal disc bulge and osteophytic ridging. There is mild facet arthritis bilaterally. The thecal space and foramina appear adequate. C7/T1: The thecal space is adequate. The neural foramina are adequate. No significant abnormality is identif ied. CONCLUSION: 1. Advanced degenerative changes throughout the cervical spine with the most significant abnormalitie s at C3/4 and C5/6. Individual levels are dictated in detail above. Shamar Perry MD on January 14, 2018 at 15:57 Board Certified Radiologist. This report was verified electronically.
[2018-01-14 20:21] VITALS: BP 112/70; PULSE 79; RESP 18; TEMP 97.8; O2SAT 96
[2018-01-14] MEDS: ATORVASTATIN 40 MG TAB PO SCH (22:31)
[2018-01-14] MEDS: TAMSULOSIN HCL 0.4 MG CAP PO SCH (22:31)
[2018-01-14] MEDS: PRAZOSIN HCL 1 MG CAP PO SCH (22:32)
[2018-01-14] MEDS: traZODone HCL 100 MG TAB PO SCH (22:32)
[2018-01-15 00:40] VITALS: BP 109/56; PULSE 73; RESP 16; TEMP 97.9; O2SAT 93
[2018-01-15 03:43] VITALS: BP 123/74; PULSE 87; RESP 20; TEMP 98.1; O2SAT 94
[2018-01-15] MEDS: BACLOFEN 10 MG TAB PO SCH (06:05)
[2018-01-15 07:15] VITALS: BP 108/75; PULSE 79; RESP 17; TEMP 98; O2SAT 97
[2018-01-15] MEDS ORDERED: ATOR40TA16 PO (08:21)
[2018-01-15] MEDS ORDERED: OXYB5TAB8 PO (08:21)
--- NOTE | 2018-01-15 08:22 | HHI.DCPOC ---
Discharge Care Plan Diagnosis: (1) Depression (2) Anxiety (3) COPD exacerbation (4) TIA (transient ischemic attack) Your Health Problems Are: Anxiety Loss of Movements Chronic Pain Goals to Promote Your Health * To prevent worsening of your condition and complications * To maintain your health at the optimal level Directions to Meet Your Goals Take your medications as prescribed Follow your dietary instruction Follow activity as directed Keep your appointments as scheduled Take your immunizations and boosters as scheduled If your symptoms worsen call your PCP, if no PCP go to Urgent Care Center or Emergency Room Smoking is Dangerous to Your Health. Avoid second hand smoke Call the 24-hour hour crisis hotline for domestic abuse at Tory Lobato Jan 15, 2018 08:22
--- NOTE | 2018-01-15 08:42 | HHI.FF ---
Face to Face Verification Diagnosis: (1) Depression (2) Anxiety (3) COPD exacerbation (4) TIA (transient ischemic attack) Physical Therapy Order: Evaluate and Treat Home Health Nursing Order: Medical education Signs/symptoms of disease process Medication education-adverse effect Nursing assessment with vital signs I have seen patient Daniel Mims on 01/15/18. My clinical findings support the need for the requested home health care services because: Ltd mobility - disease progression Deconditioned w/ increased weakness Limited ability to care for self High risk of falls I certify that my clinical findings support that this patient is homebound because: Unsteady gait/balance Tory Lobato Jan 15, 2018 08:42
--- NOTE | 2018-01-15 08:43 | HHI.DS ---
Discharge Summary Admission Date Jan 14, 2018 at 11:15 Discharge Date: Jan 17, 2018 Admitting Diagnosis COPD exacerbation, TIA (1) Anxiety ICD Code: F41.9 - Anxiety disorder, unspecified (2) Depression ICD Code: F32.9 - Major depressive disorder, single episode, unspecified (3) Alcohol withdrawal ICD Code: F10.239 - Alcohol dependence with withdrawal, unspecified (4) Hypertension ICD Code: I10 - Essential (primary) hypertension (5) Hyperlipidemia ICD Code: E78.5 - Hyperlipidemia, unspecified (6) COPD (chronic obstructive pulmonary disease) ICD Code: J44.9 - Chronic obstructive pulmonary disease, unspecified Procedures No procedures Brief History - From Admission 62-year-old male with a past medical history significant for anxiety/depression , COPD, hypertension and hyperlipidemia presents to the emergency department for the evaluation of "bladder pain." Patient states that his bladder has been bothering him for months. He feels as though he has to urinate all the time. He was previously worked up for this and given multiple medications which he reports he takes at times. The patient states he was taking his medications that he started to feel better and he stopped taking them. He has not followed up as an outpatient with anyone because he just moved here and has not established with the [facility] system yet. He denies any pain with urination or blood in his urine. The patient states that while he was in the emergency department he began to develop a numbness on the dorsum of both hands and in his left lower extremity and foot. He states this started around 11 AM. CBC/BMP: 01/14/18 1115 01/14/18 1115 Significant Findings Laboratory Tests Test 01/12/18 12:35 01/13/18 07:00 01/14/18 11:15 Red Cell Distribution Width 17.8 % (11.6-17.2) 18.0 % (11.6-17.2) 18.3 % (11.6-17.2) Mean Platelet Volume 6.9 FL (7.0-11.0) 6.7 FL (7.0-11.0) Sodium Level 134 MEQ/L (136-145) Estimat Glomerular Filtration Rate 77 ML/MIN (>89) 86 ML/MIN (>89) 82 ML/MIN (>89) Troponin I LESS THAN 0.02 NG/ML White Blood Count 14.8 TH/MM3 (4.0-11.0) Neutrophils (%) (Auto) 74.7 % (16.0-70.0) Monocytes (%) (Auto) 8.2 % (0.0-8.0) Neutrophils # (Auto) 11.0 TH/MM3 (1.8-7.7) Monocytes # (Auto) 1.2 TH/MM3 (0-0.9) Random Glucose 107 MG/DL (74-106) 147 MG/DL (74-106) Alkaline Phosphatase 140 U/L (45-117) Triglycerides Level 190 MG/DL (42-150) Cholesterol Level 239 MG/DL (120-200) LDL Cholesterol 149 MG/DL (0-99) Potassium Level 3.4 MEQ/L (3.5-5.1) Imaging Last Impressions Cervical Spine MRI 01/14/18 0000 Signed Impressions: Service Date/Time: Sunday, January 14, 2018 14:30 - CONCLUSION: 1. Advanced degenerative changes throughout the cervical spine with the most significant abnormalities at C3/4 and C5/6. Individual levels are dictated in detail above. Shamar Perry MD Head Magnetic Resonance Angiography 01/13/18 0000 Signed Impressions: Service Date/Time: Saturday, January 13, 2018 09:35 - CONCLUSION: 1. Limited examination secondary to patient motion. 2. Unremarkable MRA examination of [place]. No large vessel occlusion or aneurysm. Anival Ramsey MD Carotid Artery Ultrasound 01/13/18 0000 Signed Impressions: Service Date/Time: Saturday, January 13, 2018 14:32 - CONCLUSION: 1. Bilateral carotid plaque without significant flow-limiting stenosis. 2. Antegrade vertebral artery flow bilaterally. Anival Ramsey MD Brain MRI 01/13/18 0000 Signed Impressions: Service Date/Time: Saturday, January 13, 2018 09:35 - CONCLUSION: 1. No acute intracranial disease. 2. Mucous retention cyst within the right maxillary sinus as well as mild mucosal thickening involving the ethmoid and maxillary sinuses bilaterally. Pravin Jones MD Chest X-Ray 01/12/18 1225 Signed Impressions: Service Date/Time: December 12:41 - CONCLUSION: 1. Chronic elevation of the right hemidiaphragm with minimal right basilar atelectasis/scarring. 2. Minimal linear left basilar airspace disease, presumably atelectasis/scarring. Anival Ramsey MD Head CT 01/12/18 0000 Signed Impressions: Service Date/Time: December 17:30 - CONCLUSION: 1. No acute intracranial abnormalities. Mucosal thickening ethmoid air cells. Carlos Macdonald MD Abdomen/Pelvis CT 01/12/18 0000 Signed Impressions: Service Date/Time: December 14:25 - CONCLUSION: 1. Subsegmental right basilar air space disease, probably atelectasis or mild inflammatory change with elevated right hemidiaphragm. 2. 3.7 cm infrarenal abdominal aortic aneurysm. No evidence for rupture. 3. Mild fatty liver. Small ventral hernias without evidence for incarceration or obstruction. 4. Colonic diverticulosis without diverticulitis. Carlos Macdonald MD PE at Discharge GENERAL: male lying in bed, tremulous CARDIOVASCULAR: Regular rate and rhythm without murmurs, gallops, or rubs. RESPIRATORY: Clear to auscultation. Breath sounds equal bilaterally. No wheezes , rales, or rhonchi. GASTROINTESTINAL: Abdomen soft, non-tender, nondistended. No hepato-splenomegaly , or palpable masses. No guarding. MUSCULOSKELETAL: Extremities without clubbing, cyanosis, or edema. No joint tenderness, effusion, or edema noted. No calf tenderness. NEUROLOGICAL: Awake and alert. Cranial nerves II through XII intact. Motor and sensory grossly within normal limits. Normal speech. Spontaneously moves all 4 extremities. Difficult to assess strength as patient with severe tremors and questionable participation in exam. Pt update on day of discharge Improved. No tremors. Eating fairly well. Ambulating with PT fairly well. No nausea vomiting diarrhea or constipation. Hospital Course 1. New onset numbness/weakness MRI brain reviewed, and no acute intracranial disease. Sinus disease bilaterally ethmoid and maxillary sinuses with retention cyst in the right maxillary sinus. MRA brain reviewed, normal Carotid ultrasound reviewed fairly normal CT head negative for acute process Neurology consulted, appreciate recommendations 2. Bladder spasm Oxybutynin Restart home meds Case management consult to assist patient in follow-up with urology at the [place] 3. Depression/anxiety Continue home sertraline and trazodone 4. Alcohol abuse Thiamine/folate/multivitamins [facility] protocol Monitor for signs of withdrawal 5. COPD DuoNeb's when necessary 6. Hypertension/hyperlipidemia Patient's home medications unclear Continue once reconciled Clonidine when necessary Restart home medications as appropriate FEN Heart healthy diet Electrolytes: Monitor and replete when necessary Heparin Patient improved. Cleared by neurology for this discharge. Discharged home with home health to follow-up as outpatient with PCP and consultants. Pt Condition on Discharge: Stable Discharge Disposition: Disch w/ Home Health Serv Discharge Time: > 30 minutes Discharge Instructions DIET: Follow Instructions for: Heart Healthy Diet Activities you can perform: Regular-No Restrictions Follow up Referrals: Neurology - 2 Weeks with Agus Hooks MD PCP Follow-up - 2-3 Days New Medications: Lorazepam (Ativan) 0.5 Mg Tab 0.5 MG PO Q8H PRN for ANXIETY AND/OR AGITATION, #10 TAB 0 Refills Atorvastatin (Atorvastatin) 40 Mg Tab 40 MG PO HS for Cholesterol Management, #30 TAB Oxybutynin (Ditropan) 5 Mg Tab 5 MG PO Q12HR for Bladder Spasm, #60 TAB Continued Medications: Albuterol 8.5 GM Inh (Proair Hfa 8.5 GM Inh) 90 Mcg/Act Aer 2 PUFF INH Q6H PRN for SHORTNESS OF BREATH, #1 INHALER 0 Refills 108 mcg/actuation Aspirin DR (Aspirin EC) 81 Mg Tabdr 162 MG PO DAILY, TAB 0 Refills Fluocinonide Topical (Fluocinonide Topical) 0.05% Soln 1 APPLIC TOPICAL DAILY, #60 ML 0 Refills Gabapentin (Gabapentin) 800 Mg Tab 800 MG PO BID, #90 TAB 0 Refills Hydroxyzine HCl (Hydroxyzine HCl) 50 Mg Tab 50 MG PO TID, TAB 0 Refills Lactobacillus Acidophilus (Lactobacillus Acidophilus) 1 Billion Cell Tab 3 TAB PO TIDAC for Nutritional Supplement, #60 TAB 0 Refills Metoprolol Tartrate (Metoprolol Tartrate) 25 Mg Tab 12.5 MG PO BID, #60 TAB 0 Refills Multiple Vitamin (Multi-Vitamin Daily) 1 Tab Tab 1 TAB PO DAILY for Nutritional Supplement, TAB 0 Refills Omeprazole (Omeprazole) 40 Mg Cap 40 MG PO DAILY, #30 CAP 0 Refills Polyethylene Glycol 3350 Powder (Miralax Powder) 17 Gm Powd 17 GM PO DAILY for Constipation, #1 CAN 0 Refills Mix and dissolve one measuring cap-ful (17 grams) in water or juice. Prazosin (Prazosin) 1 Mg Cap 1 MG PO HS for Blood Pressure Management, #60 CAP 0 Refills Quetiapine (Seroquel) 200 Mg Tab 200 MG PO TID, #60 TAB 0 Refills Sennosides (Sennosides) 8.6 Mg Tab 17.2 MG PO HS for Constipation, TAB 0 Refills Sertraline (Sertraline) 50 Mg Tab 50 MG PO DAILY, #30 TAB 0 Refills Tamsulosin (Tamsulosin) 0.4 Mg Cap 0.4 MG HS for Manage Prostate Problems, #30 CAP 0 Refills Tiotropium Inh (Spiriva Respimat Inh) 2.5 Mcg/Act Aero 2 PUFF INH DAILY for COPD, #1 INHALER 0 Refills 2.5 mcg = 1 inhalation Trazodone (Trazodone) 100 Mg Tablet 100 MG PO HS for Control Depression, #30 TAB 0 Refills Discontinued Medications: Aspirin (Aspirin) 81 Mg Chew 162 MG PO DAILY, TAB 0 Refills Simvastatin (Simvastatin) 20 Mg Tab 20 MG PO HS for Cholesterol Management, #30 TAB 0 Refills Norma Baum MD Jan 15, 2018 08:43
[2018-01-15] MEDS: HEPARIN SODIUM - SQ 10,000 UNITS/ML VIAL SQ SCH (09:39)
[2018-01-15] MEDS: INSULIN ASPART SUPPLEMENTAL SCALE SQ SCH (09:40)
[2018-01-15] MEDS: SERTRALINE HCL 50 MG TAB PO SCH (09:44)
[2018-01-15] MEDS: THIAMINE HCL 100 MG TAB PO SCH (09:44)
[2018-01-15] MEDS: PANTOPRAZOLE SOD 40 MG DELAYED RELEASE TAB PO SCH (09:45)
[2018-01-15] MEDS: QUEtiapine FUMARATE 200 MG TAB PO SCH (09:45)
[2018-01-15] MEDS: ASPIRIN EC 81 MG TABEC PO SCH (09:45)
[2018-01-15] MEDS: MULTIVITAMINS/MINERALS THERAPEUTIC TAB PO SCH (09:45)
[2018-01-15] MEDS: METOPROLOL TARTRATE 25 MG TAB PO SCH (09:45)
[2018-01-15] MEDS: OXYBUTYNIN CHLORIDE 5 MG TAB PO SCH (09:45)
[2018-01-15] MEDS: SODIUM CHLORIDE 0.9% FLUSH 10 ML FLUSH IV FLUSH SCH (09:45)
[2018-01-15] MEDS: FOLIC ACID 1 MG TAB PO SCH (09:45)
[2018-01-15] MEDS: GABAPENTIN 400 MG CAP PO SCH (09:45)
[2018-01-15] MEDS ORDERED: LORA-392 PO ×2 (10:01→12:08)
[2018-01-15 11:20] VITALS: BP 109/67; PULSE 76; RESP 16; TEMP 97.6; O2SAT 95
== END 2018-01-15 13:46 | disposition home health service (06) | DRG 897 ==
LOC: NEPC 12:14 → NEDA 18:26 → NEPHCDU 22:23 → OBSVTOIN 01-14 11:15
PROVIDERS: ADMIT Hospitalist; ATTEND Hospitalist
DX: F10.239 Alcohol dependence with withdrawal, unspecified (principal); G45.9 Transient cerebral ischemic attack, unspecified; N32.89 Other specified disorders of bladder; J44.1 Chronic obstructive pulmonary disease with (acute) exacerbation; J98.11 Atelectasis; I10 Essential (primary) hypertension; E78.5 Hyperlipidemia, unspecified; K21.9 Gastro-esophageal reflux disease without esophagitis; I71.4 Abdominal aortic aneurysm, without rupture; K43.9 Ventral hernia without obstruction or gangrene; K57.30 Diverticulosis of large intestine without perforation or abscess without bleeding; J34.1 Cyst and mucocele of nose and nasal sinus; M19.90 Unspecified osteoarthritis, unspecified site; F17.210 Nicotine dependence, cigarettes, uncomplicated; F41.8 Other specified anxiety disorders; Y90.0 Blood alcohol level of less than 20 mg/100 ml; Z91.14 Patient's other noncompliance with medication regimen
CPT/HCPCS: 70450; 70544; 70551; 71045; 72141; 74177; 80048; 80053; 80061; 80307; 81001; 82948; 83036; 83690; 83735; 84484; 85025; 85027; 85610; 85730; 93005; 93880; 94150; 94640; 94664; 96374; 96375; 96376; G0378; G8987-GP; G8988-GP; J1644; J1815; J2060; J2930; Q9967

== ENCOUNTER 2018-02-02 11:32 | Emergency (ER) | payer OTHER ==
[~2018-02-02 11:32] MED LIST changes: +ALBUAER3 INH; +ASPI81TA23 PO; +ATOR40TA16 PO; +FLUO.05%ST TOPICAL; +GABA800T PO; +LACTTAB8 PO; +LORA-392 PO; +METO25TA3 PO; +MIRA3350 PO; +MULT-65 PO; +OMEP40CA2 PO; +OXYB5TAB8 PO; +PRAZ1CAP PO; +SENN8.6T81 PO; +TAMS0.4C4; +TIOT12.9 INH
[2018-02-02] MEDS ORDERED: IOHEXOL 350 MG/ML 10 ML VIAL (for RAD DIAG) IVCONTRAST ONE (11:33)
[2018-02-02 12:02] VITALS: BP 149/86; PULSE 108; RESP 20; TEMP 97.5; O2SAT 100
[2018-02-02] MEDS ORDERED: MORPHINE SULFATE 4 MG/ML INJ IV PUSH ONE (12:15)
[2018-02-02] MEDS ORDERED: SODIUM CHLORIDE 0.9% FLUSH 10 ML FLUSH IV FLUSH PRN (12:15)
[2018-02-02] MEDS ORDERED: ONDANSETRON HCL 4 MG/2 ML VIAL IVP ONE (12:15)
--- NOTE | 2018-02-02 12:21 | PD ---
HPI Chief Complaint: Lump, Cyst, Hernia Time Seen by Provider: 12:07 Travel History International Travel<30 days: No Contact w/Intl Traveler<30days: No Traveled to known affect area: No History of Present Illness HPI 62-year-old male presents for evaluation of abdominal pain. Symptoms started this morning. He reports sharp pain of his abdomen which is constant. He reports that he has had loose stools over the past few days. He believes that the pain may be related to ventral wall hernias. He has had hernias of the abdominal wall for the past few months. He was seen here in mid December and he had a CT of the abdomen and pelvis which revealed 2 small ventral hernias as well as a 3.7 cm AAA. He denies nausea, vomiting, fevers, chills. He does report chronic increased urinary frequency and he has been prescribed oxybutynin for bladder spasm. He has no other complaints at this time. PFSH Past Medical History Arthritis: Yes Blood Disorders: No Bipolar Disorder: Yes Anxiety: Yes Depression: Yes Cancer: No Cardiovascular Problems: Yes High Cholesterol: Yes COPD: Yes Diminished Hearing: No Endocrine: No GERD: Yes Hypertension: Yes Musculoskeletal: Yes (ARTHRITIS) Psychiatric: Yes (BIPOLAR) Respiratory: Yes Past Surgical History Eye Surgery: Yes (LEFT EYE CATARACT SURGERY) Social History Alcohol Use: Yes ("I AM AN ALCOHOLIC") Tobacco Use: Yes (2 PPD) Substance Use: No Allergies-Medications (Allergen,Severity, Reaction): Coded Allergies: No Known Drug Allergies (Verified Allergy, Unknown, 02/02/18) Uncoded Allergies: environmental (Allergy, Intermediate, Irritation, 06/17/10) excess mucus Reported Meds & Prescriptions Reported Meds & Active Scripts Active Tylenol-Codeine #3 (Acetaminophen-Codeine) 300-30 mg Tab 1 Tab PO Q6H PRN Ativan (Lorazepam) 0.5 Mg Tab 0.5 Mg PO Q8H PRN Ditropan (Oxybutynin Chloride) 5 Mg Tab 5 Mg PO Q12HR Atorvastatin (Atorvastatin Calcium) 40 Mg Tab 40 Mg PO HS Reported Multi-Vitamin Daily (Multiple Vitamin) 1 Tab Tab 1 Tab PO DAILY Tamsulosin (Tamsulosin HCl) 0.4 Mg Cap 0.4 Mg HS Sennosides 8.6 Mg Tab 17.2 Mg PO HS Omeprazole 40 Mg Cap 40 Mg PO DAILY Metoprolol Tartrate 25 Mg Tab 12.5 Mg PO BID Gabapentin 800 Mg Tab 800 Mg PO BID Prazosin (Prazosin HCl) 1 Mg Cap 1 Mg PO HS Aspirin EC (Aspirin) 81 Mg Tabdr 162 Mg PO DAILY Lactobacillus Acidophilus 1 Billion Cell Tab 3 Tab PO TIDAC Fluocinonide Topical (Fluocinonide) 0.05% Soln 1 Applic TOPICAL DAILY Proair Hfa 8.5 GM Inh (Albuterol Sulfate) 90 Mcg/Act Aer 2 Puff INH Q6H PRN 108 mcg/actuation Miralax Powder (Polyethylene Glycol 3350 Powder) 17 Gm Powd 17 Gm PO DAILY Mix and dissolve one measuring cap-ful (17 grams) in water or juice. Spiriva Respimat Inh (Tiotropium Inh) 2.5 Mcg/Act Aero 2 Puff INH DAILY 2.5 mcg = 1 inhalation Trazodone (Trazodone HCl) 100 Mg Tablet 100 Mg PO HS Sertraline (Sertraline HCl) 50 Mg Tab 50 Mg PO DAILY Hydroxyzine HCl 50 Mg Tab 50 Mg PO TID Seroquel (Quetiapine Fumarate) 200 Mg Tab 200 Mg PO TID Review of Systems Except as stated in HPI: all other systems reviewed are Neg Physical Exam Narrative GENERAL: Well-developed well-nourished male who appears uncomfortable on initial examination. SKIN: Warm and dry. There is some ecchymosis to the anterior abdominal wall. HEAD: Atraumatic. Normocephalic. EYES: Pupils equal and round. No scleral icterus. No injection or drainage. ENT: No nasal bleeding or discharge. Mucous membranes pink and moist. NECK: Trachea midline. No JVD. CARDIOVASCULAR: Regular rate and rhythm. No murmur appreciated. RESPIRATORY: No accessory muscle use. Clear to auscultation. Breath sounds equal bilaterally. GASTROINTESTINAL: Abdomen soft, generalized tenderness to palpation. There is a small approximately 2 cm firm area of induration subcutaneously on the left anterior abdominal wall. MUSCULOSKELETAL: No obvious deformities. No clubbing. No cyanosis. No edema. NEUROLOGICAL: Awake and alert. No obvious cranial nerve deficits. Motor grossly within normal limits. Normal speech. Data Data Last Documented VS Vital Signs Date Time Temp Pulse Resp B/P (MAP) Pulse Ox O2 Delivery O2 Flow Rate FiO2 02/02/18 12:35 100 18 02/02/18 12:35 151/89 (109) 99 Room Air 02/02/18 12:02 97.5 Orders Orders Complete Blood Count With Diff (02/02/18 12:15) Comprehensive Metabolic Panel (02/02/18 12:15) Lactic Acid (02/02/18 12:15) Urinalysis - C+S If Indicated (02/02/18 12:15) Ct Abd/Pel W Iv Contrast(Rout) (02/02/18 12:15) Iv Access Insert/Monitor (02/02/18 12:15) Ecg Monitoring (02/02/18 12:15) Oximetry (02/02/18 12:15) Morphine Inj (Morphine Inj) (02/02/18 12:15) Ondansetron Inj (Zofran Inj) (02/02/18 12:15) Sodium Chloride 0.9% Flush (Ns Flush) (02/02/18 12:15) Lipase (02/02/18 12:15) Oral Contrast - Adult (02/02/18 13:43) Diatrizoate Liq ( Gastroview Liq) (02/02/18 13:54) Iohexol 350 Inj (Omnipaque 350 Inj) (02/02/18 11:33) Ed Discharge Order (02/02/18 15:29) Labs Laboratory Tests Test 02/02/18 12:45 02/02/18 12:50 White Blood Count 10.2 TH/MM3 Red Blood Count 4.95 MIL/MM3 Hemoglobin 15.0 GM/DL Hematocrit 43.3 % Mean Corpuscular Volume 87.5 FL Mean Corpuscular Hemoglobin 30.3 PG Mean Corpuscular Hemoglobin Concent 34.6 % Red Cell Distribution Width 17.1 % Platelet Count 216 TH/MM3 Mean Platelet Volume 7.4 FL Neutrophils (%) (Auto) 68.0 % Lymphocytes (%) (Auto) 19.8 % Monocytes (%) (Auto) 10.1 % Eosinophils (%) (Auto) 1.6 % Basophils (%) (Auto) 0.5 % Neutrophils # (Auto) 7.0 TH/MM3 Lymphocytes # (Auto) 2.0 TH/MM3 Monocytes # (Auto) 1.0 TH/MM3 Eosinophils # (Auto) 0.2 TH/MM3 Basophils # (Auto) 0.1 TH/MM3 CBC Comment DIFF FINAL Differential Comment Urine Color YELLOW Urine Turbidity CLEAR Urine pH 6.0 Urine Specific [place] 1.009 Urine Protein NEG mg/dL Urine Glucose (UA) NEG mg/dL Urine Ketones NEG mg/dL Urine Occult Blood NEG Urine Nitrite NEG Urine Bilirubin NEG Urine Urobilinogen LESS THAN 2.0 MG/DL Urine Leukocyte Esterase NEG Urine WBC 1 /hpf Microscopic Urinalysis Comment CULT NOT INDICATED Blood Urea Nitrogen 4 MG/DL Creatinine 0.96 MG/DL Random Glucose 112 MG/DL Total Protein 7.8 GM/DL Albumin 3.8 GM/DL Calcium Level 8.9 MG/DL Alkaline Phosphatase 183 U/L Aspartate Amino Transf (AST/SGOT) 45 U/L Alanine Aminotransferase (ALT/SGPT) 34 U/L Total Bilirubin 1.4 MG/DL Sodium Level 134 MEQ/L Potassium Level 4.0 MEQ/L Chloride Level 101 MEQ/L Carbon Dioxide Level 25.4 MEQ/L Anion Gap 8 MEQ/L Estimat Glomerular Filtration Rate 79 ML/MIN Lipase 100 U/L Lactic Acid Level 2.0 mmol/L MDM Medical Decision Making Medical Screen Exam Complete: Yes Emergency Medical Condition: Yes Medical Record Reviewed: Yes Differential Diagnosis Reducible hernia, strangulated hernia, incarcerated hernia, bowel obstruction, diverticulitis, pancreatitis Narrative Course This is a 62-year-old male who has been expressing left-sided abdominal pain throughout the day which he believes may be related to his ventral hernias. On initial examination he appeared uncomfortable. He had a small palpable defect in the left side of his abdomen which is tender. Plan is for lab work, CT abdomen and pelvis with IV and oral contrast. He was given morphine. The patient has been stable during his hospital stay. Upon reexamination he feels improved. His CBC is unremarkable. His CMP reveals sodium 134, total bilirubin 1.4, AST 45, lactic acid is within normal limits, urinalysis is normal. CT abdomen and pelvis with IV and oral contrast reveals CONCLUSION: 1. Wide mouth umbilical hernia containing a loop of small bowel. No evidence of strangulation. 2. Small upper midline abdominal wall ventral hernia containing fat. 3. 3.6 cm distal abdominal aortic aneurysm. 4. Mild sigmoid diverticula without radiographic evidence of diverticulitis. The patient was given a copy of his CT report and reassured. I did recommend that he follow-up on a routine basis with a surgeon as an outpatient. Discussed signs and symptoms I would warrant returning to the emergency room. He is stable for discharge. Diagnosis Primary Impression: Abdominal wall hernia Additional Impression: Umbilical hernia Referrals: General Surgeon Additional Instructions: Follow-up at the [facility]. Follow-up with a general surgeon. Return for any emergent medical conditions. Med/Other Pt SpecificInfo: Prescription(s) given Scripts Acetaminophen-Codeine (Tylenol-Codeine #3) 300-30 mg Tab 1 TAB PO Q6H Y for PAIN, #12 TAB 0 Refills Prov: Richie San MD 02/02/18 Disposition: DISCHARGE HOME Condition: Stable Maxwell Carias Feb 02, 2018 12:21
[2018-02-02 12:35] VITALS: BP 151/89; PULSE 100; RESP 18; O2SAT 99
[2018-02-02 13:28] LABS: BASOPHIL # 0.1 TH/MM3 (0-0.2); BASOPHIL % 0.5 % (0.0-2.0); EOSINOPHIL # 0.2 TH/MM3 (0-0.4); EOSINOPHIL % 1.6 % (0.0-4.0); HEMATOCRIT 43.3 % (39.0-51.0); LYMPH % 19.8 % (9.0-44.0); MEAN CELL VOLUME 87.5 FL (80.0-100.0); MEAN CORPUSCULAR HEMOGLOBIN 30.3 PG (27.0-34.0); MEAN CORPUSCULAR HGB CONC 34.6 % (32.0-36.0); MEAN PLATELET VOLUME 7.4 FL (7.0-11.0); MONO % 10.1 % (0.0-8.0); PLATELET COUNT 216 TH/MM3 (150-450); RED BLOOD COUNT 4.95 MIL/MM3 (4.50-5.90); RED CELL DISTRIBUTION WIDTH 17.1 % (11.6-17.2); WHITE BLOOD COUNT 10.2 TH/MM3 (4.0-11.0)
[2018-02-02 13:30] LABS: BILIRUBIN, URINE NEG (NEG); BLOOD, URINE NEG (NEG); GLUCOSE,URINE NEG (NEG); KETONE, URINE NEG (NEG); NITRITE,URINE NEG (NEG); URINE COLOR YELLOW (YELLW/STRAW); URINE LEUKOCYTE ESTERASE NEG (NEG)
[2018-02-02 13:47] LABS: ALT (GPT) 34 U/L (12-78)
[2018-02-02 13:49] LABS: ALKALINE PHOSPHATASE 183 U/L (45-117); TOTAL BILIRUBIN ADULT 1.4 MG/DL (0.2-1.0); TOTAL PROTEIN 7.8 GM/DL (6.4-8.2)
[2018-02-02] MEDS ORDERED: DIATRIZOATE MEGLUM/DIATRIZOATE SOD 9 ML CUP ONE (13:54)
[2018-02-02 14:01] LABS: ALBUMIN 3.8 GM/DL (3.4-5.0); AST (GOT) 45 U/L (15-37); BICARBONATE 25.4 MEQ/L (21.0-32.0); BLOOD UREA NITROGEN 4 MG/DL (7-18); CALCIUM 8.9 MG/DL (8.5-10.1); CHLORIDE 101 MEQ/L (98-107); CREATININE 0.96 MG/DL (0.60-1.30); GLOMERULAR FILTRATION RATE 79 ML/MIN (>89); GLUCOSE,RANDOM 112 MG/DL (74-106); SODIUM (NA) 134 MEQ/L (136-145)
--- NOTE | 2018-02-02 15:20 | RADRPT ---
EXAM DATE/TIME: 02/02/2018 15:00 [facility] COMPARISON: CT ABDOMEN & PELVIS W CONTRAST, January 12, 2018, 14:25. INDICATIONS : Patient complains of hernia, abdominal pain. IV CONTRAST: 96 cc Omnipaque 350 (iohexol) IV ORAL CONTRAST: Prescribed oral contrast ingested. RADIATION DOSE: 12.50 CTDIvol (mGy) MEDICAL HISTORY : Cardiovascular disease. Hypertension. Chronic obstructive pulmonary disease.gerd SURGICAL HISTORY : None. ENCOUNTER: Initial ACUITY: 1 day PAIN SCALE: 8/10 LOCATION: abdomen TECHNIQUE: Volumetric scanning of the abdomen and pelvis was performed. Using automated exposure control and ad justment of the mA and/or kV according to patient size, radiation dose was kept as low as reasonably achievable to obtain optimal diagnostic quality images. DICOM format image data is available electro nically for review and comparison. FINDINGS: LOWER LUNGS: Right basilar atelectasis or scarring, similar to prior. LIVER: Homogeneous density without lesion. There is no dilation of the biliary tree. No calcified gallston es. SPLEEN: Normal size without lesion. PANCREAS: Within normal limits. KIDNEYS: Normal in size and shape. There is no mass, stone or hydronephrosis. ADRENAL GLANDS: Within normal limits. VASCULAR: Distal abdominal aortic aneurysm, saccular in configuration, measuring 3.7 cm in dimension. No exten fady into the iliac vessels. BOWEL/MESENTERY: No dilated loops of small or large bowel. Oral contrast passes through into the distal small bowel. A few small diverticula in the sigmoid colon without radiographic evidence of diverticulitis. No ev idence of free fluid. ABDOMINAL WALL: There is a small fat containing ventral hernia in the midline upper abdominal wall. There is also a moderate size of the lateral hernia with separation between the rectus muscles measuring 3.5 cm and c ontaining a loop of small bowel. RETROPERITONEUM: There is no lymphadenopathy. BLADDER: No wall thickening or mass. REPRODUCTIVE: Within normal limits. INGUINAL: There is no lymphadenopathy or hernia. MUSCULOSKELETAL: Within normal limits for patient age. CONCLUSION: 1. Wide mouth umbilical hernia containing a loop of small bowel. No evidence of strangulation. 2. Small upper midline abdominal wall ventral hernia containing fat. 3. 3.6 cm distal abdominal aortic aneurysm. 4. Mild sigmoid diverticula without radiographic evidence of diverticulitis. Robinson Aviles MD on February 02, 2018 at 15:13 Board Certified Radiologist. This report was verified electronically.
[2018-02-02] MEDS ORDERED: TYLETAB34 PO (15:27)
--- NOTE | 2018-02-02 15:44 | PD ---
Data Data Last Documented VS Vital Signs Date Time Temp Pulse Resp B/P (MAP) Pulse Ox O2 Delivery O2 Flow Rate FiO2 02/02/18 12:35 100 18 02/02/18 12:35 151/89 (109) 99 Room Air 02/02/18 12:02 97.5 Orders Orders Complete Blood Count With Diff (02/02/18 12:15) Comprehensive Metabolic Panel (02/02/18 12:15) Lactic Acid (02/02/18 12:15) Urinalysis - C+S If Indicated (02/02/18 12:15) Ct Abd/Pel W Iv Contrast(Rout) (02/02/18 12:15) Iv Access Insert/Monitor (02/02/18 12:15) Ecg Monitoring (02/02/18 12:15) Oximetry (02/02/18 12:15) Morphine Inj (Morphine Inj) (02/02/18 12:15) Ondansetron Inj (Zofran Inj) (02/02/18 12:15) Sodium Chloride 0.9% Flush (Ns Flush) (02/02/18 12:15) Lipase (02/02/18 12:15) Oral Contrast - Adult (02/02/18 13:43) Diatrizoate Liq ( Gastroview Liq) (02/02/18 13:54) Iohexol 350 Inj (Omnipaque 350 Inj) (02/02/18 11:33) Ed Discharge Order (02/02/18 15:29) Labs Laboratory Tests Test 02/02/18 12:45 02/02/18 12:50 White Blood Count 10.2 TH/MM3 Red Blood Count 4.95 MIL/MM3 Hemoglobin 15.0 GM/DL Hematocrit 43.3 % Mean Corpuscular Volume 87.5 FL Mean Corpuscular Hemoglobin 30.3 PG Mean Corpuscular Hemoglobin Concent 34.6 % Red Cell Distribution Width 17.1 % Platelet Count 216 TH/MM3 Mean Platelet Volume 7.4 FL Neutrophils (%) (Auto) 68.0 % Lymphocytes (%) (Auto) 19.8 % Monocytes (%) (Auto) 10.1 % Eosinophils (%) (Auto) 1.6 % Basophils (%) (Auto) 0.5 % Neutrophils # (Auto) 7.0 TH/MM3 Lymphocytes # (Auto) 2.0 TH/MM3 Monocytes # (Auto) 1.0 TH/MM3 Eosinophils # (Auto) 0.2 TH/MM3 Basophils # (Auto) 0.1 TH/MM3 CBC Comment DIFF FINAL Differential Comment Urine Color YELLOW Urine Turbidity CLEAR Urine pH 6.0 Urine Specific [place] 1.009 Urine Protein NEG mg/dL Urine Glucose (UA) NEG mg/dL Urine Ketones NEG mg/dL Urine Occult Blood NEG Urine Nitrite NEG Urine Bilirubin NEG Urine Urobilinogen LESS THAN 2.0 MG/DL Urine Leukocyte Esterase NEG Urine WBC 1 /hpf Microscopic Urinalysis Comment CULT NOT INDICATED Blood Urea Nitrogen 4 MG/DL Creatinine 0.96 MG/DL Random Glucose 112 MG/DL Total Protein 7.8 GM/DL Albumin 3.8 GM/DL Calcium Level 8.9 MG/DL Alkaline Phosphatase 183 U/L Aspartate Amino Transf (AST/SGOT) 45 U/L Alanine Aminotransferase (ALT/SGPT) 34 U/L Total Bilirubin 1.4 MG/DL Sodium Level 134 MEQ/L Potassium Level 4.0 MEQ/L Chloride Level 101 MEQ/L Carbon Dioxide Level 25.4 MEQ/L Anion Gap 8 MEQ/L Estimat Glomerular Filtration Rate 79 ML/MIN Lipase 100 U/L Lactic Acid Level 2.0 mmol/L MDM Supervised Visit with CATIE: Yes Narrative Course I, Dr. San, have reviewed the advance practice practitioner's documentation and am in agreement, met with the patient face to face, made the diagnosis, and the medical decision making was done by me. *My assessment and Findings: This patient has chronic abdominal hernias. He was seen here 2-3 weeks ago for the same thing. CT scan revealed the hernias. He has not followed up with the [facility] surgeon. And said he comes back to the ER for evaluation of his hernias again. Extensive workup was done today. His labs were reviewed. CT imaging reveals his hernia is again. There is no evidence of strangulation. He does have a loop of intestine in the hernia. He has soft benign abdomen. Lactate normal. No fever. Small amount of pain medication written. Of note, unfortunate this patient was reviewed and condescending. Maxwell spent a good bit of time trying to discuss things with him including how to prevent increased abdominal pressure and how to go about [facility]. The patient kept cutting him off and talking over him and belittling him. Likewise when I was speaking with the patient, he largely ignored what I was trying to tell him. He was not receptive to medical information or advice. Afterwards he complained to the nurse and wanted to complain to me "about the care he received here". Patient received very extensive and thorough workup. I did not have time to immediately go back in the room for that reason as I am being inundated with many patients and have to take care of them as well. When I came back to his room he had left. Diagnosis Primary Impression: Abdominal wall hernia Additional Impression: Umbilical hernia Referrals: General Surgeon Additional Instruction: Follow-up at the [facility]. Follow-up with a general surgeon. Return for any emergent medical conditions. Scripts Acetaminophen-Codeine (Tylenol-Codeine #3) 300-30 mg Tab 1 TAB PO Q6H Y for PAIN, #12 TAB 0 Refills Prov: Richie San MD 02/02/18 Disposition: 01 DISCHARGE HOME Condition: Stable Richie San MD Feb 02, 2018 15:44
[2018-02-02 16:06] VITALS: BP 156/79
== END 2018-02-02 16:10 | disposition home or self-care (01) ==
LOC: NEPD 11:32
DX: K43.9 Ventral hernia without obstruction or gangrene (principal); K42.9 Umbilical hernia without obstruction or gangrene; I71.4 Abdominal aortic aneurysm, without rupture; I10 Essential (primary) hypertension; E78.00 Pure hypercholesterolemia, unspecified; J44.9 Chronic obstructive pulmonary disease, unspecified; K21.9 Gastro-esophageal reflux disease without esophagitis; M19.90 Unspecified osteoarthritis, unspecified site; F31.9 Bipolar disorder, unspecified; F41.9 Anxiety disorder, unspecified; F17.210 Nicotine dependence, cigarettes, uncomplicated; Z79.899 Other long term (current) drug therapy
CPT/HCPCS: 74177; 80053; 81001; 83605; 83690; 85025; 96374; 96375; 99284; J2270; J2405; Q9963; Q9967